=== PATIENT | female | born 1955 | race Caucasian/White ===

== ENCOUNTER 2017-02-21 02:41 | Emergency (ER) | payer MEDICARE, OTHER ==
[~2017-02-21] VITALS: Ht 149.8 cm; Wt 99.8 kg
[~2017-02-21 02:41] MED LIST: ADVAIR 100/501 EA INH; ADVAIR 250/501 EA INH; ADVAIR HFA1 AE1 PO; ALBUTEROL0.63 MG/3 INH; AMARYL1 M1 PO; AMARYL2 MG PO; ASPIRIN81 M1 PO; ATIVAN0.5 MG PO; ATORVASTATIN CA20 M1 PO; ATORVASTATIN CA80 M1 PO; B COMPLEX1 EACH PO; CALCIUM500 MG PO; CELEXA40 MG PO; CLARITIN10 MG PO; CLOPIDOGREL75 MG PO; COUMADIN5 M2 PO; COUMADIN6 M2 PO; Coumadin5 MG PO; DIOVAN HCT 12.51 TA1 PO; DOCUSATE SODIU100 M2 PO; DULCOLAX10 MG; DULCOLAX10 MG RC; DULCOLAX5 MG; DUONEB 3 MG/3 ML3 M1 INH; ENOXAPARIN120 MG/0.2 SC; FE-TABS325 MG PO; FERROUS SULFAT324 M1 PO; FLONASE 0.05% 121 EA NAS; FLONASE ALLERG9.9 ML NS; FLUTICASON0.05 MG/Ac NAS; GLUCOPHAGE1000 MG PO; GLUCOPHAGE500 M1 PO; GOOD SENSE ASP325 MG PO; GUAIFENESIN600 MG PO; HUMIRA40 MG/0.1 SC; HUMIRA40 MG/0.3 SQ; IMDUR SA30 MG PO; JANUVIA100 MG PO; K-DUR20 MEQ PO; KEPPRA1000 MG PO; KLOR-CON M2020 ME1 PO; LAMICTAL100 MG PO; LANTUS100 U/ML SC; LASIX40 MG PO; LEVEMIR FLEX100 U/ML SC; LEVEMIR10 ML SC; LEVOFLOXACIN500 MG PO; LEXAPRO10 MG; LEXAPRO20 MG PO; LINZESS145 MC1 PO; LIPITOR40 MG PO; LISINOPRIL10 M1 PO; LOPERAMIDE2 MG; LOPRESSOR25 MG PO; MAGNESIUM OXID400 MG PO; MEDROL DOSEPAK4 MG; METOPROLOL SR25 MG PO; METOPROLOL TAR100 M1 PO; METOPROLOL TART50 M1 PO; MILK OF MA400 MG/51 PO; MIRALAX POWDER255 G1 PO; MIRALAX17 GM/DOSE; MIRALAX17 GM/PACK PO; MUCINEX ER600 MG PO; MYLANTA 150 ML150 M1; NICODERM C14 MG/24 H TD; NITRO-DUR1 EACH TD; NOVOLOG FLEX100 U/ML SC; OYSTER SHELL CA1 T23 PO; Oscal,Oyster S500 MG PO; POTASSIUM CHLO20 ME3 PO; PREDNISONE10 M1 PO; PRILOSEC20 MG PO; PRILOSEC40 M1 PO; PROTONIX IV40 MG PO; SINGULAIR10 M1 PO; SPIRIVA -- 3018 MCG PO; SPIRIVA18 MCG PO; SYMBICORT1 AE1 INH; Senokot1 TAB PO; Synthroid,Levo50 MCG PO; Synthroid,Levo75 MCG PO; TOPROL XL25 MG PO; TRILIPIX45 M1 PO; TYLENOL EXTRA500 M1 PO; TYLENOL325 M2 PO; URECHOLINE25 MG PO; VISTARIL25 M1; VITAMIN B12500 MCG PO; VITAMIN D50000 I1 PO; VITAMIN D50000 I3 PO; ZANTAC 300300 MG PO; ZITHROMAX Z PA250 MG PO; ZITHROMAX500 MG PO; ZYPREXA ZYDIS5 MG PO; ZYPREXA10 MG PO; ZYPREXA20 M1 PO; Zaroxolyn,Diul2.5 MG PO; Zofran4 MG PO; [UNRECOGNIZED DRUG - OTHER]; [UNRECOGNIZED DRUG - OTHER] PO
[2017-02-21] MEDS ORDERED: CLOPIDOGREL75 MG PO (02:50)
[2017-02-21] MEDS ORDERED: FEOSOL325 MG PO (02:51)
[2017-02-21] MEDS ORDERED: HUMIRA40 MG/0.3 SQ (02:53)
[2017-02-21] MEDS ORDERED: HUMALOG MI100 UNIT/1 SQ (02:54)
[2017-02-21] MEDS ORDERED: ROPINIROLE HY0.25 MG PO (02:59)
[2017-02-21 03:27] LABS: BASO # 0.1 10*3/uL (0.0-0.1); BASO % 0.5 % (0.0-1.0); EOS # 1.9 10*3/uL (0.0-0.4); EOS % 19.8 % (1.0-4.0); HEMATOCRIT 41.7 % (37.0-47.0); HEMOGLOBIN 12.9 g/dl (12.0-16.0); LYMPH # 2.3 10*3/uL (1.3-4.4); LYMPH % 24.6 % (27.0-41.0); MEAN CELL VOLUME 93.5 fl (81.0-99.0); MEAN CORPUSCULAR HGB 28.9 pg (27.0-31.0); MEAN CORPUSCULAR HGB CONC 30.9 g/dl (33.0-37.0); MEAN PLATELET VOLUME 8.8 fl (9.6-12.3); MONO # 0.4 10*3/uL (0.1-1.0); MONO % 3.7 % (3.0-9.0); NEUT # 4.8 10*3/uL (2.3-7.9); PLATELET COUNT AUTOMATED 177 10*3/uL (130-400); RED BLOOD COUNT 4.46 10*6/uL (4.10-5.10); RED CELL DISTRI WIDTH 13.5 % (0-14.5); WHITE BLOOD COUNT 9.3 10*3/uL (4.8-10.8)
[2017-02-21 03:38] LABS: INTERNATIONAL NORM RATIO 0.9 (2.0-3.5); PROTHROMBIN TIME 9.5 SECONDS (9.0-12.4)
[2017-02-21 03:44] LABS: ALBUMIN 3.2 gm/dl (3.1-4.5); ALKALINE PHOSPHATASE 85 U/L (45-117); BILIRUBIN, TOTAL 0.2 mg/dl (0.2-1.0); BUN 13 mg/dl (7-24); CARBON DIOXIDE 35 mmol/L (21-32); CHLORIDE 95 mmol/L (98-107); EST GLOM FILT AFRICAN AMERICAN > 60 ml/min; GLUCOSE 249 mg/dL (65-99); POTASSIUM 4.7 mmol/L (3.5-5.1); SGOT/AST 29 IU/L (3-35); SGPT/ALT 35 U/L (12-78); SODIUM 140 mmol/L (136-145); TOTAL PROTEIN 6.8 gm/dL (6.4-8.2)
[2017-02-21 03:50] LABS: TROPONIN I 0.174 ng/ml (<0.045)
[2017-02-21 04:37] VITALS: BP 142/49
== END 2017-02-21 06:08 | disposition short-term general hospital (02) ==
LOC: ED 02:41
PROVIDERS: Emergency Medicine
DX: I21.4 Non-ST elevation (NSTEMI) myocardial infarction (principal); F17.200 Nicotine dependence, unspecified, uncomplicated; E03.9 Hypothyroidism, unspecified; I48.91 Unspecified atrial fibrillation; E11.65 Type 2 diabetes mellitus with hyperglycemia; E78.5 Hyperlipidemia, unspecified; Z79.4 Long term (current) use of insulin; Z88.2 Allergy status to sulfonamides; Z88.8 Allergy status to other drugs, medicaments and biological substances; Z79.899 Other long term (current) drug therapy

== ENCOUNTER 2018-04-11 15:04 | Inpatient (IN) | payer MEDICARE, OTHER ==
[~2018-04-11] VITALS: Ht 149.9 cm; Wt 89.2 kg
--- NOTE | ~2018-04-11 | PROC NOTE ---
[place], [place] PROCEDURE NOTE NAME: BON VAZQUEZ UNIT #: [id number] ROOM: [place] [address] DOCTOR: DAKOTA TUCKER MD BIRTHDATE: [birth year] DOS: 04/12/2018 PREOPERATIVE DIAGNOSES: Colonic distention, sepsis. POSTOPERATIVE DIAGNOSES: Colonic distention, sepsis. PROCEDURE: Flexible sigmoidoscopy. ENDOSCOPIST: Dakota Tucker MD GEAR SETTER: PGY-2. ANESTHESIA: IV sedation. INDICATIONS: This is a 63-year-old lady admitted yesterday from the Emergency Room with abdominal distention and sepsis. She had deterioration in her clinical condition and was transferred to the ICU, where I was consulted to evaluate and a decision was made to proceed with a flexible sigmoidoscopy for colonic decompression. PROCEDURE: Since this procedure as an emergency and the patient was intubated, the consent was signed by 2 physicians, myself included. The patient was placed in the left lateral position and a digital rectal exam was performed, which consisted of dark green stool, but no evidence of bleeding. At this point, a flexible sigmoidoscope was introduced into the anal canal and advanced sequentially until approximately 60 cm from the anal verge multiple rounds of irrigation were used in order to clearly visualize the mucosa. When the descending colon area was reached where there was considerable amount of distention noted on the CAT scan, the air was sucked away and there was a visual decompression of the abdominal girth during the process of the compression. The mucosa itself that was visualized was partial, but did not show evidence of ischemia or inflammation. At this point, the scope was withdrawn and the patient was placed back in supine position. At this point, the patient is also being transferred to a tertiary care center for further management. There were no complications from this procedure immediately. Dr. Dakota Tucker, the attending endoscopist, was present throughout the operating case. Dakota Tucker MD CM:PROCNOTE:PROCEDURE NOTE 54 DAKOTA TUCKER MD
--- NOTE | ~2018-04-11 | EKG ---
[place], [place] ELECTROCARDIOGRAM REPORT NAME: BON VAZQUEZ UNIT #: [id number] ROOM: [place] [address] DOCTOR: ISAIAS ARMSTRONG MD,CHANDNI BIRTHDATE: [birth year] DOS: 04/11/2018 Electrocardiogram that was done on 04/11/2018 at 3:22 p.m. The electrocardiogram showed multifocal atrial tachycardia with heart rate of 105 beats per minute. Poor R-wave progression was also noted in the chest leads. Nonspecific ST-T changes were noted. CHANDNI ESPARZA MD CM:EKGRPT:ELECTROCARDIOGRAM REPORT [id number] CHANDNI ARMSTRONG MD
[~2018-04-11 15:04] MED LIST changes: +FEOSOL325 MG PO; +HUMALOG MI100 UNIT/1 SQ; +ROPINIROLE HY0.25 MG PO
[2018-04-11 15:05] VITALS: BP 119/62
[2018-04-11] MEDS ORDERED: LIPITOR40 MG PO (15:09)
[2018-04-11] MEDS ORDERED: BISAC-EVAC10 MG R (15:11)
[2018-04-11] MEDS ORDERED: BREO ELLIPTA 11 EACH INH (15:13)
[2018-04-11] MEDS ORDERED: BUMETANIDE1 MG PO (15:14)
[2018-04-11] MEDS ORDERED: DEPAKOTE SPRIN125 MG PO (15:16)
[2018-04-11] MEDS ORDERED: FENOFIBRATE MI200 MG PO (15:16)
[2018-04-11] MEDS ORDERED: Ipratropium Brom3 ML INH (15:18)
[2018-04-11] MEDS ORDERED: HUMALOG KW200 UNIT/1 SC ×2 (15:19→15:24)
[2018-04-11 16:00] LABS: HEMOGLOBIN 8.8 g/dl (12.0-16.0); MEAN CELL VOLUME 93.9 fl (81.0-99.0); MEAN CORPUSCULAR HGB 28.5 pg (27.0-31.0); MEAN CORPUSCULAR HGB CONC 30.3 g/dl (33.0-37.0); MEAN PLATELET VOLUME 8.7 fl (9.6-12.3); PLATELET COUNT AUTOMATED 602 10*3/uL (130-400); RED BLOOD COUNT 3.09 10*6/uL (4.10-5.10); RED CELL DISTRI WIDTH 13.4 % (0-14.5); WHITE BLOOD COUNT 14.1 10*3/uL (4.8-10.8)
[2018-04-11 16:07] LABS: BILIRUBIN NEGATIVE (NEGATIVE); BLOOD NEGATIVE (NEGATIVE); CLARITY CLEAR (CLEAR); COLOR YELLOW (YELLOW); GLUCOSE NEGATIVE (NEGATIVE); KETONE NEGATIVE (NEGATIVE); LEUKO ESTERASE TRACE (NEGATIVE); NITRITE NEGATIVE (NEGATIVE); PH 5.5 (5.0-9.0); SPECIFIC GRAVITY 1.015 (1.005-1.030); UROBILINOGEN 0.2 E.U./dl (0.2-1.0)
[2018-04-11 16:09] LABS: ACT PARTIAL THROMBO TIME 24.7 SECONDS (20.8-31.5); INTERNATIONAL NORM RATIO 1.1 (2.0-3.5)
[2018-04-11 16:09] LABS: ALKALINE PHOSPHATASE 77 U/L (45-117); BUN 65 mg/dl (7-24); CHLORIDE 94 mmol/L (98-107); CREATININE 1.92 mg/dL (0.55-1.02); POTASSIUM 2.9 mmol/L (3.5-5.1); SGOT/AST 66 IU/L (3-35); SGPT/ALT 69 U/L (12-78); SODIUM 134 mmol/L (136-145); TOTAL PROTEIN 6.8 gm/dL (6.4-8.2)
[2018-04-11] MEDS ORDERED: LEVEMIR100 UNIT/1 SC (16:10)
[2018-04-11 16:13] LABS: TROPONIN I < 0.015 ng/ml (<0.045)
[2018-04-11] MEDS ORDERED: LOPERAMIDE HCL2 MG PO (16:14)
[2018-04-11 16:24] LABS: MUCOUS TRACE; RBC 0-2 rbc/hpf (0-2)
[2018-04-11 16:36] LABS: ATYPICAL LYMPHS 1 % (0-0); TOTAL CELLS COUNTED 100 #CELLS; TOXIC GRANULATION SLIGHT; VACUOLATION OF NEUTROPHILS SLIGHT
[2018-04-11 16:37] LABS: PLATELET SUFFICIENCY HIGH (NORMAL)
[2018-04-11 16:45] VITALS: BP 111/57
[2018-04-11 17:50] VITALS: BP 104/49
[2018-04-11] MEDS ORDERED: METOPROLOL TART50 M1 PO (18:36)
[2018-04-11] MEDS ORDERED: JANUVIA100 MG PO (18:39)
[2018-04-11] MEDS ORDERED: ZYPREXA10 M1 PO (18:41)
[2018-04-11] MEDS ORDERED: VISTARIL25 M2 PO (18:42)
[2018-04-11] MEDS ORDERED: CENTRUM SILVER1 EACH PO (18:49)
[2018-04-11 20:00] VITALS: BP 112/37
[2018-04-12] VITALS (22 sets, daily range): BP systolic 58–136; BP diastolic 25–74
[2018-04-12 04:02] LABS: HEMATOCRIT 27.4 % (37.0-47.0); HEMOGLOBIN 8.5 g/dl (12.0-16.0); MEAN CELL VOLUME 93.5 fl (81.0-99.0); MEAN PLATELET VOLUME 8.7 fl (9.6-12.3); PLATELET COUNT AUTOMATED 590 10*3/uL (130-400); RED BLOOD COUNT 2.93 10*6/uL (4.10-5.10); RED CELL DISTRI WIDTH 13.5 % (0-14.5); WHITE BLOOD COUNT 14.9 10*3/uL (4.8-10.8)
[2018-04-12 04:12] LABS: ACT PARTIAL THROMBO TIME 25.4 SECONDS (20.8-31.5); INTERNATIONAL NORM RATIO 1.1 (2.0-3.5)
[2018-04-12 04:19] LABS: ALBUMIN 1.8 gm/dl (3.1-4.5); BUN 62 mg/dl (7-24); CHLORIDE 101 mmol/L (98-107); CREATININE 1.46 mg/dL (0.55-1.02); CREATININE 1.48 mg/dL (0.55-1.02); PHOSPHOROUS 2.7 mg/dL (2.5-4.9); POTASSIUM 3.7 mmol/L (3.5-5.1); SODIUM 137 mmol/L (136-145); TOTAL PROTEIN 6.2 gm/dL (6.4-8.2)
[2018-04-12 04:20] LABS: FREE T4 1.49 ng/dl (0.76-1.46)
[2018-04-12 04:25] LABS: THYROID STIM HORMONE (HS) 0.233 uIU/ml (0.358-4.75)
[2018-04-12 04:30] LABS: TROPONIN I < 0.015 ng/ml (<0.045)
[2018-04-12 05:42] LABS: TOTAL CELLS COUNTED 100 #CELLS; TOXIC GRANULATION MODERATE
[2018-04-12 05:43] LABS: PLATELET SUFFICIENCY HIGH (NORMAL)
[2018-04-12 07:14] LABS: VITAMIN D, 25-HYDROXY 27.1 ng/mL (30-100)
[2018-04-12 07:27] LABS: ABG BASE EXCESS -3.7 mmol/L (-2.0-2.0); ABG HCO3 23.3 mmol/l (22-26); ABG O2 SATURATION 97.8 % (95-97); ARTERIAL BLOOD GAS PCO2 60.5 mmHg (35-45); ARTERIAL BLOOD GAS PH 7.219 (7.35-7.45)
[2018-04-12] MEDS ORDERED: METRONIDAZ500 MG/100 IV (07:31)
== END 2018-04-12 08:58 | disposition short-term general hospital (02) | DRG 871 ==
LOC: ED 15:04 → EDHOLD 17:54 → 4E 18:06 → ICCU 04-12 03:21
PROVIDERS: Emergency Medicine; Family Medicine; Internal Medicine
PROC: 5A1935Z Respiratory Ventilation, Less than 24 Consecutive Hours (ICD-10-PCS; principal; 2018-04-11)
PROC: 0BH17EZ Insertion of Endotracheal Airway into Trachea, Via Natural or Artificial Opening (ICD-10-PCS; principal; 2018-04-11)
PROC: 05H533Z Insertion of Infusion Device into Right Subclavian Vein, Percutaneous Approach (ICD-10-PCS; principal; 2018-04-11)
PROC: 0DJD8ZZ Inspection of Lower Intestinal Tract, Via Natural or Artificial Opening Endoscopic (ICD-10-PCS; 2018-04-12)
DX: A41.9 Sepsis, unspecified organism (principal); N17.0 Acute kidney failure with tubular necrosis; R65.21 Severe sepsis with septic shock; I50.33 Acute on chronic diastolic (congestive) heart failure; E43 Unspecified severe protein-calorie malnutrition; I95.9 Hypotension, unspecified; E87.2 Acidosis; E66.01 Morbid (severe) obesity due to excess calories; K50.819 Crohn's disease of both small and large intestine with unspecified complications; E87.1 Hypo-osmolality and hyponatremia; I50.32 Chronic diastolic (congestive) heart failure; I48.91 Unspecified atrial fibrillation; E11.65 Type 2 diabetes mellitus with hyperglycemia; G40.909 Epilepsy, unspecified, not intractable, without status epilepticus; E83.41 Hypermagnesemia; E78.5 Hyperlipidemia, unspecified; E03.9 Hypothyroidism, unspecified; E87.6 Hypokalemia; R14.0 Abdominal distension (gaseous); K52.9 Noninfective gastroenteritis and colitis, unspecified; I25.10 Atherosclerotic heart disease of native coronary artery without angina pectoris; J44.9 Chronic obstructive pulmonary disease, unspecified; K59.8 Other specified functional intestinal disorders; D64.9 Anemia, unspecified; D47.3 Essential (hemorrhagic) thrombocythemia; R74.0 Nonspecific elevation of levels of transaminase and lactic acid dehydrogenase [LDH]; K63.89 Other specified diseases of intestine; I25.2 Old myocardial infarction; Z88.2 Allergy status to sulfonamides; Z88.8 Allergy status to other drugs, medicaments and biological substances; Z79.899 Other long term (current) drug therapy; Z79.4 Long term (current) use of insulin; Z79.82 Long term (current) use of aspirin; Z98.61 Coronary angioplasty status; Z72.0 Tobacco use; Z82.49 Family history of ischemic heart disease and other diseases of the circulatory system; Z80.1 Family history of malignant neoplasm of trachea, bronchus and lung; Z68.39 Body mass index [BMI] 39.0-39.9, adult

== ENCOUNTER 2019-07-01 08:19 | Emergency (ER) | payer MEDICARE, OTHER ==
[~2019-07-01] VITALS: Ht 149.8 cm; Wt 90.7 kg
--- NOTE | ~2019-07-01 | EKG ---
[place], [place] ELECTROCARDIOGRAM REPORT NAME: BON VAZQUEZ UNIT #: [id number] ROOM: DOCTOR: EPIPHANY DRAFT REPORT BIRTHDATE: [birth year] [facility] Test Date: 2019-07-01 Test Time: 08:37:43 Pat Name: BON VAZQUEZ Department: Room: Gender: F Wire Temperer: Ebony Mitchell : 1955 Requested By: KATI NICHOLAS Order Number: [id number] Reading MD: Leslie Harrington MD Measurements Intervals [place] Rate: 98 P: 78 NM: 168 QRS: 81 QRSD: 88 T: 63 QT: 408 QTc: 522 Interpretive Statements Sinus rhythm Right atrial enlargement Borderline right axis deviation Borderline repol abnormality, diffuse leads Prolonged QT interval Baseline wander in lead(s) V5 No previous ECG available for comparison Electronically Signed On 07-01-2019 12:23:31 PDT by Leslie Harrington MD CM:EKGRPT:ELECTROCARDIOGRAM REPORT [id number] KATI CROW DRAFT REPORT KATI NICHOLAS MD
[~2019-07-01 08:19] MED LIST changes: +ACTOS15 M1 PO; +ACTOS30 M1 PO; +ASPIRIN ADULT L81 M2 PO; +BISAC-EVAC10 MG R; +BREO ELLIPTA 11 EACH INH; +BUMETANIDE1 MG PO; +CENTRUM SILVER1 EACH PO; +COZAAR25 M1 PO; +CYMBALTA30 MG PO; +DEPAKOTE SPRIN125 MG PO; +ELIQUIS5 M1 PO; +ERGOCALCIFEROL PO; +FENOFIBRATE MI200 MG PO; +FLORASTOR250 MG PO; +HUMALOG KW200 UNIT/1 SC; +HUMALOG100 UNIT/1 SQ; +IMODIUM A-D PO; +IRON325 M1 PO; +Ipratropium Brom3 ML INH; +LEVEMIR100 UNIT/1 SC; +LEVETIRACETAM1000 M1 PO; +LOPERAMIDE HCL2 MG PO; +MAGNESIUM CHLOR64 MG PO; +METRONIDAZ500 MG/100 IV; +OMEPRAZOLE MAGN20 MG PO; +QUESTRAN POWDE378 GM PO; +ROXICODONE5 MG PO; +SIMETHICONE125 M2 PO; +URE-NA15 GM PO; +VISTARIL25 M2 PO; +ZYPREXA10 M1 PO
[2019-07-01 08:46] LABS: BASO % 0.3 % (0.0-1.0); EOS % 0.3 % (1.0-4.0); HEMATOCRIT 40.9 % (37.0-47.0); HEMOGLOBIN 12.5 g/dl (12.0-16.0); LYMPH # 1.3 10*3/uL (1.3-4.4); LYMPH % 11.2 % (27.0-41.0); MEAN CELL VOLUME 85.4 fl (81.0-99.0); MEAN CORPUSCULAR HGB 26.1 pg (27.0-31.0); MEAN CORPUSCULAR HGB CONC 30.6 g/dl (33.0-37.0); MEAN PLATELET VOLUME 8.6 fl (9.6-12.3); MONO # 0.7 10*3/uL (0.1-1.0); MONO % 6.3 % (3.0-9.0); NEUT # 9.2 10*3/uL (2.3-7.9); NEUT % 81.1 % (47.0-73.0); PLATELET COUNT AUTOMATED 305 10*3/uL (130-400); RED BLOOD COUNT 4.79 10*6/uL (4.10-5.10); RED CELL DISTRI WIDTH 14.8 % (0-14.5); WHITE BLOOD COUNT 11.3 10*3/uL (4.8-10.8)
[2019-07-01 09:01] LABS: ACT PARTIAL THROMBO TIME 25.4 SECONDS (20.0-32.1)
[2019-07-01 09:03] LABS: ALBUMIN 3.5 gm/dl (3.1-4.5); ALKALINE PHOSPHATASE 64 U/L (45-117); BUN 19 mg/dl (7-24); CHLORIDE 96 mmol/L (98-107); CREATININE 0.96 mg/dL (0.55-1.02); LIPASE 66 U/L (73-393); POTASSIUM 3.7 mmol/L (3.5-5.1); SGOT/AST 10 IU/L (3-35); SGPT/ALT 17 U/L (12-78); SODIUM 136 mmol/L (136-145); TOTAL PROTEIN 7.3 gm/dL (6.4-8.2)
[2019-07-01 09:04] LABS: TROPONIN I < 0.015 ng/ml (<0.045)
[2019-07-01 09:06] LABS: BILIRUBIN NEGATIVE (NEGATIVE); BLOOD NEGATIVE (NEGATIVE); CLARITY CLEAR (CLEAR); COLOR YELLOW (YELLOW); GLUCOSE TRACE (NEGATIVE); KETONE NEGATIVE (NEGATIVE); NITRITE NEGATIVE (NEGATIVE); SPECIFIC GRAVITY 1.025 (1.005-1.030); UROBILINOGEN 0.2 E.U./dl (0.2-1.0)
[2019-07-01 09:19] LABS: BACTERIA 1+; EPITHELIAL CELLS 0-2; LEUKO ESTERASE NEGATIVE (NEGATIVE)
[2019-07-01 16:46] VITALS: BP 189/69
== END 2019-07-01 16:48 | disposition short-term general hospital (02) ==
LOC: ED 08:19
PROVIDERS: Emergency Medicine
DX: K56.609 Unspecified intestinal obstruction, unspecified as to partial versus complete obstruction (principal); R11.2 Nausea with vomiting, unspecified; J44.9 Chronic obstructive pulmonary disease, unspecified; I25.10 Atherosclerotic heart disease of native coronary artery without angina pectoris; I50.33 Acute on chronic diastolic (congestive) heart failure; G40.909 Epilepsy, unspecified, not intractable, without status epilepticus; E78.5 Hyperlipidemia, unspecified; E03.9 Hypothyroidism, unspecified; E11.9 Type 2 diabetes mellitus without complications; I25.2 Old myocardial infarction; M19.90 Unspecified osteoarthritis, unspecified site; E66.01 Morbid (severe) obesity due to excess calories; Z88.2 Allergy status to sulfonamides; Z88.8 Allergy status to other drugs, medicaments and biological substances; Z79.899 Other long term (current) drug therapy; Z79.82 Long term (current) use of aspirin; Z79.4 Long term (current) use of insulin; Z87.891 Personal history of nicotine dependence; Z90.49 Acquired absence of other specified parts of digestive tract

== ENCOUNTER 2019-09-13 14:36 | Inpatient (IN) | payer MEDICARE, OTHER ==
[2019-09-13] VITALS (7 sets, daily range): BP systolic 92–133; BP diastolic 31–76
[~2019-09-13] VITALS: Ht 149.9 cm; Wt 75.3 kg
[2019-09-13 15:12] LABS: BASO # 0.1 10*3/uL (0.0-0.1); BASO % 0.4 % (0.0-1.0); EOS # 0.1 10*3/uL (0.0-0.4); EOS % 0.5 % (1.0-4.0); HEMOGLOBIN 11.6 g/dl (12.0-16.0); LYMPH % 11.2 % (27.0-41.0); MEAN CELL VOLUME 92.5 fl (81.0-99.0); MEAN CORPUSCULAR HGB CONC 31.4 g/dl (33.0-37.0); MEAN PLATELET VOLUME 9.2 fl (9.6-12.3); MONO # 0.9 10*3/uL (0.1-1.0); MONO % 4.8 % (3.0-9.0); NEUT # 14.8 10*3/uL (2.3-7.9); NEUT % 81.7 % (47.0-73.0); PLATELET COUNT AUTOMATED 439 10*3/uL (130-400); RED CELL DISTRI WIDTH 16.6 % (0-14.5); WHITE BLOOD COUNT 18.1 10*3/uL (4.8-10.8)
[2019-09-13 15:23] LABS: INTERNATIONAL NORM RATIO 1.6 (2.0-3.5)
[2019-09-13 15:29] LABS: ALKALINE PHOSPHATASE 89 U/L (45-117); BUN 64 mg/dl (7-24); CHLORIDE 96 mmol/L (98-107); CREATININE 3.58 mg/dL (0.55-1.02); LIPASE 113 U/L (73-393); SGOT/AST 22 IU/L (3-35); SGPT/ALT 10 U/L (12-78); SODIUM 128 mmol/L (136-145); TOTAL PROTEIN 8.4 gm/dL (6.4-8.2)
[2019-09-13 15:31] LABS: POTASSIUM 7.2 mmol/L (3.5-5.1); TROPONIN I < 0.015 ng/ml (<0.045)
[2019-09-13 15:50] LABS: BILIRUBIN NEGATIVE (NEGATIVE); BLOOD 1+ (NEGATIVE); CLARITY CLOUDY (CLEAR); COLOR YELLOW (YELLOW); GLUCOSE NEGATIVE (NEGATIVE); KETONE TRACE (NEGATIVE); LEUKO ESTERASE 2+ (NEGATIVE); NITRITE NEGATIVE (NEGATIVE); SPECIFIC GRAVITY 1.025 (1.005-1.030); UROBILINOGEN 0.2 E.U./dl (0.2-1.0)
[2019-09-13 16:07] LABS: WBC TNTC wbc/hpf (0-5)
[2019-09-13 16:08] LABS: BACTERIA 1+
[2019-09-13] MEDS ORDERED: PACERONE200 MG PO (18:32)
[2019-09-13] MEDS ORDERED: VITAMIN C500 M8 PO (18:34)
[2019-09-13] MEDS ORDERED: CARDURA1 M1 PO (18:38)
[2019-09-13] MEDS ORDERED: CYMBALTA30 MG PO (18:39)
[2019-09-13] MEDS ORDERED: FLONASE ALLERG9.9 ML NAS (18:45)
[2019-09-13] MEDS ORDERED: HYDROXYZINE HCL25 MG PO (18:48)
[2019-09-13] MEDS ORDERED: LOMOTIL 2.5-0.1 EACH PO (18:59)
[2019-09-13] MEDS ORDERED: IMODIUM A-D2 M2 PO (19:00)
[2019-09-13] MEDS ORDERED: LORAZEPAM0.5 MG PO (19:01)
[2019-09-13] MEDS ORDERED: MAGOX 400400 MG PO (19:01)
[2019-09-13] MEDS ORDERED: Lopressor25 MG PO (19:02)
[2019-09-13] MEDS ORDERED: LANTUS SOL100 UNIT/1 SQ (19:03)
[2019-09-13] MEDS ORDERED: REQUIP0.25 M1 PO (19:04)
[2019-09-13] MEDS ORDERED: PROTONIX40 MG PO (19:05)
[2019-09-13] MEDS ORDERED: ZOFRAN4 MG PO (19:06)
[2019-09-13] MEDS ORDERED: OYSTER SHELL 51 EACH PO (19:07)
[2019-09-13] MEDS ORDERED: OLANZAPINE10 MG PO (19:07)
[2019-09-13] MEDS ORDERED: MILK OF MA400 MG/51 PO (19:09)
[2019-09-13] MEDS ORDERED: MYLANTA MAXIMU355 M1 PO (19:09)
--- NOTE | 2019-09-13 19:21 | NUR ---
DR TINAJERO NOTIFIED OF CONSULT ORDER, STATED HE WILL SEE PT IN THE AM.
--- NOTE | 2019-09-13 19:25 | NUR ---
DR GÓMEZ ANSWERING SERVICE MADE AWARE OF NEW CONSULT ORDER.
--- NOTE | 2019-09-13 19:38 | NUR ---
DR GÓMEZ NOTIFIED OF NEW CONSULT ORDER AND NEW ORDERS RECIEVED TO INCREASE ORAL VANCOMYCIN DOSE.
--- NOTE | 2019-09-13 19:53 | NUR ---
DR HOSKINS ANSWERING SERVICE MADE AWARE OF NEW CONSULT ORDER.
--- NOTE | 2019-09-13 20:08 | NUR ---
DR HOSKINS NOTIFIED OF NEW CONSULT AND REVIEWED LABS WITH HIM. REPEAT LABS ORDERED NOW.
[2019-09-13 20:14] LABS: CREATININE 2.99 mg/dL (0.55-1.02)
[2019-09-13 20:15] LABS: POTASSIUM 5.6 mmol/L (3.5-5.1)
[2019-09-13 20:23] LABS: ALBUMIN 2.6 gm/dl (3.1-4.5); CREATININE 2.98 mg/dL (0.55-1.02); POTASSIUM 5.6 mmol/L (3.5-5.1)
[2019-09-13 20:25] LABS: PHOSPHOROUS 4.3 mg/dL (2.5-4.9)
--- NOTE | 2019-09-13 20:31 | NUR ---
DR HOSKINS NOTIFIED OF REPEAT LAB VALUES.
[2019-09-13 23:31] LABS: CREATININE 2.78 mg/dL (0.55-1.02); POTASSIUM 5.4 mmol/L (3.5-5.1)
[2019-09-14] VITALS: BP 81/49
[2019-09-14 01:00] VITALS: BP 93/48
--- NOTE | 2019-09-14 01:30 | NUR ---
PT PUT LIGHT ON TO USE BED MAHMOOD. PT PARTLY INCONT BUT DID USE BED MAHMOOD. 200 ML OUTPUT OBTAINED BUT SOME INCONT OF URINE. OSTOMIES EMPTIED WELL. #1 WAS 10 ML BLOODY CLEAR DRAINAGE. #2 50ML CLEAR LIQUID BM. SOME LEAKING AT SITE. PT BED CHANGED AND NEW LINENS AND GOWN. PT COMFORTABLE AND BACK TO SLEEP. RESTING COMFORTABLY
[2019-09-14 02:00] VITALS: BP 126/60
--- NOTE | 2019-09-14 04:24 | NUR ---
Shift chart check completed.
[2019-09-14 05:16] LABS: CREATININE 2.35 mg/dL (0.55-1.02); PHOSPHOROUS 5.4 mg/dL (2.5-4.9); POTASSIUM 5.4 mmol/L (3.5-5.1)
[2019-09-14 05:23] LABS: THYROID STIM HORMONE (HS) 7.97 uIU/ml (0.358-4.75)
--- NOTE | 2019-09-14 05:40 | NUR ---
BON VAZQUEZ [id number] Please refer to the physician's history and physical for past medical history, comorbid conditions, and allergies. Diagnosis: ARF,HYPERKALEMIA Saud Score: 14,MODERATE RISK WOUND DESCRIPTIONS: Wound Number: 1 Location of the wound: Right side of abdomen Type of wound: surgical Thickness: Partial Size: 0.8cm x 2.3cm x 0.3cm Tunneling: none Undermining: none Sinus Tract: none Presence of Exudate: Serosanguineous Amount: Light Color: Yellow, red Odor: None Periwound Skin Appearance: Normal Wound edges: approximated Pain (associated with wound): none at time of assessment How does patient state this happened? pt states she had surgery up in [place] june or july Wound Number: 2 Location of the wound: above umbilicus Type of wound: surgical Thickness: Full Size: 14.3cm x 11.5cm x 0.8cm Tunneling: none Undermining: none Sinus Tract: none Presence of Exudate: Purulent Amount: Moderate Color: Yellow, red, brown Odor: Foul Periwound Skin Appearance: Normal Wound edges: approximated Pain (associated with wound): tender to touch How does patient state this happened? pt states she had surgery up in [place] june or july Surface the patient is resting on: Position Pro SKIN PREVENTION RECOMMENDATION: 1. Pressure redistribution support surface as appropriate 2. Elevate heels 3. Remove boots/TEDS every shift and reapply 4. Head of bed 30 degrees as tolerated 5. Assess nutrition and hydration 6. Manage moisture 7. Avoid the use of containment devices while in bed 8. Use absorptive products on surfaces limit layers of linens on bed 9. Turn and reposition every 1-2 hours in bed and every 1 hour in chair as tolerated 10. Weight shifts every 15 minutes while up in chair 11. Offloading with pillows or device to keep heels elevated off bed 12. Monitor skin at least every shift 13. Inspect under medical devices twice a day WOUND TREATMENT RECOMMENDATIONS: Dr. Vargas and infectious disease is already on consult await wound care recommendations for above umbilicus abdomen wound. Full thickness guideslines: cleanse right lower abdomen with nss and apply sureprep around the wound therahoney to wound bed and cover with dsd daily and prn for soiling.
[2019-09-14 06:27] LABS: BASO # 0.1 10*3/uL (0.0-0.1); BASO % 0.6 % (0.0-1.0); EOS # 0.4 10*3/uL (0.0-0.4); EOS % 3.1 % (1.0-4.0); HEMATOCRIT 34.4 % (37.0-47.0); HEMOGLOBIN 10.5 g/dl (12.0-16.0); LYMPH # 1.8 10*3/uL (1.3-4.4); LYMPH % 13.9 % (27.0-41.0); MEAN CORPUSCULAR HGB CONC 30.5 g/dl (33.0-37.0); MEAN PLATELET VOLUME 9.6 fl (9.6-12.3); MONO # 0.8 10*3/uL (0.1-1.0); MONO % 5.9 % (3.0-9.0); NEUT # 9.6 10*3/uL (2.3-7.9); NEUT % 75.2 % (47.0-73.0); PLATELET COUNT AUTOMATED 371 10*3/uL (130-400); RED BLOOD COUNT 3.62 10*6/uL (4.10-5.10); WHITE BLOOD COUNT 12.7 10*3/uL (4.8-10.8)
--- NOTE | 2019-09-14 06:52 | NUR ---
WOUND NURSE GRADY HERE TO SEE PATIENT - DRESSING TO ABDOMEN CHANGED ALONG WITH COLOSTOMY TO LEFT LOWER QUAD WHERE IT WAS LEAKING
[2019-09-14 08:00] VITALS: BP 129/69
--- NOTE | 2019-09-14 09:10 | NUR ---
Patient comes from [facility] manager intermediate care. patient is ok to return when medically stable for discharge.
--- NOTE | 2019-09-14 11:00 | NUR ---
Extension Work Director in to see patient. She is a LTC resident at [facility] and plans on returning there when discharged. She states she does ambulate with a walker but the staff at [facility] do not allow her to ambulate by herself. She does wear O2 @ 3L nc ATC and gets aerosol treatments. She states she is scheduled for a colostomy reversal October 15 at [facility]. tool planner following. Dr. Vargas and Dr. Osborne consulted.
[2019-09-14 12:00] VITALS: BP 88/36
[2019-09-14 14:57] LABS: CREATININE 1.73 mg/dL (0.55-1.02); POTASSIUM 5.2 mmol/L (3.5-5.1)
--- NOTE | 2019-09-14 15:20 | NUR ---
DR RODAS (RESIDENT WITH DR LINDA) CALLED WITH LABS & ID RECOMENDATIONS
[2019-09-14 16:01] VITALS: BP 96/50
--- NOTE | 2019-09-14 17:30 | NUR ---
AWAITING [facility] TO TRANSFER TO [facility]. FAMILY AWARE
--- NOTE | 2019-09-14 17:54 | NUR ---
LEFT VIA [facility] TO [facility] ER
--- NOTE | 2019-09-14 17:59 | NUR ---
REPORT TO [facility] ER
--- NOTE | 2019-09-14 18:43 | NUR ---
PATIENT REFUSED TO ALLOW DC PHOTOS SHE DIDN'T WANT THE DRESSING TAKEN OFF AGAIN IT CAUSES PAIN
== END 2019-09-14 17:54 | disposition short-term general hospital (02) | DRG 871 ==
LOC: ED 14:36 → EDHOLD 15:57 → ICCU 15:57 → EDHOLD 16:31 → ICCU 16:44
PROVIDERS: Emergency Medicine; Family Medicine; Internal Medicine; Internal Medicine Nephrology; ADMIT Family Medicine
DX: A41.9 Sepsis, unspecified organism (principal); N17.0 Acute kidney failure with tubular necrosis; I50.32 Chronic diastolic (congestive) heart failure; E87.1 Hypo-osmolality and hyponatremia; N30.00 Acute cystitis without hematuria; K50.818 Crohn's disease of both small and large intestine with other complication; I25.810 Atherosclerosis of coronary artery bypass graft(s) without angina pectoris; E87.5 Hyperkalemia; E83.42 Hypomagnesemia; R79.89 Other specified abnormal findings of blood chemistry; E87.8 Other disorders of electrolyte and fluid balance, not elsewhere classified; E03.9 Hypothyroidism, unspecified; E66.01 Morbid (severe) obesity due to excess calories; E78.5 Hyperlipidemia, unspecified; B99.8 Other infectious disease; G40.909 Epilepsy, unspecified, not intractable, without status epilepticus; D64.9 Anemia, unspecified; E11.65 Type 2 diabetes mellitus with hyperglycemia; J44.9 Chronic obstructive pulmonary disease, unspecified; Z88.8 Allergy status to other drugs, medicaments and biological substances; Z88.2 Allergy status to sulfonamides; Z87.891 Personal history of nicotine dependence; Z82.49 Family history of ischemic heart disease and other diseases of the circulatory system; Z80.1 Family history of malignant neoplasm of trachea, bronchus and lung; Z79.82 Long term (current) use of aspirin; Z79.899 Other long term (current) drug therapy; Z79.4 Long term (current) use of insulin; Z68.34 Body mass index [BMI] 34.0-34.9, adult

== ENCOUNTER 2019-09-24 17:35 | Inpatient (IN) | payer MEDICARE, OTHER ==
[~2019-09-24] VITALS: Ht 149.9 cm; Wt 73.5 kg
[2019-09-24 17:35] VITALS: BP 126/64
[~2019-09-24 17:35] MED LIST changes: +CARDURA1 M1 PO; +FLONASE ALLERG9.9 ML NAS; +HYDROXYZINE HCL25 MG PO; +IMODIUM A-D2 M2 PO; +LANTUS SOL100 UNIT/1 SQ; +LOMOTIL 2.5-0.1 EACH PO; +LORAZEPAM0.5 MG PO; +Lopressor25 MG PO; +MAGOX 400400 MG PO; +MYLANTA MAXIMU355 M1 PO; +OLANZAPINE10 MG PO; +OYSTER SHELL 51 EACH PO; +PACERONE200 MG PO; +PROTONIX40 MG PO; +REQUIP0.25 M1 PO; +VITAMIN C500 M8 PO; +ZOFRAN4 MG PO
[2019-09-24 17:56] LABS: BASO % 0.4 % (0.0-1.0); EOS # 0.4 10*3/uL (0.0-0.4); EOS % 3.5 % (1.0-4.0); HEMATOCRIT 29.7 % (37.0-47.0); HEMOGLOBIN 9.2 g/dl (12.0-16.0); LYMPH # 2.7 10*3/uL (1.3-4.4); LYMPH % 26.9 % (27.0-41.0); MEAN CELL VOLUME 96.4 fl (81.0-99.0); MEAN CORPUSCULAR HGB 29.9 pg (27.0-31.0); MEAN PLATELET VOLUME 8.3 fl (9.6-12.3); MONO # 0.7 10*3/uL (0.1-1.0); NEUT # 6.1 10*3/uL (2.3-7.9); NEUT % 61.5 % (47.0-73.0); PLATELET COUNT AUTOMATED 453 10*3/uL (130-400); RED BLOOD COUNT 3.08 10*6/uL (4.10-5.10); RED CELL DISTRI WIDTH 16.3 % (0-14.5); WHITE BLOOD COUNT 9.9 10*3/uL (4.8-10.8)
[2019-09-24 18:07] LABS: ACT PARTIAL THROMBO TIME 29.1 SECONDS (20.0-32.1); INTERNATIONAL NORM RATIO 1.2 (2.0-3.5)
[2019-09-24 18:12] LABS: ALBUMIN 2.4 gm/dl (3.1-4.5); ALKALINE PHOSPHATASE 69 U/L (45-117); BUN 57 mg/dl (7-24); CHLORIDE 89 mmol/L (98-107); CREATININE 2.96 mg/dL (0.55-1.02); LIPASE 38 U/L (73-393); SGOT/AST 19 IU/L (3-35); SGPT/ALT 13 U/L (12-78); SODIUM 124 mmol/L (136-145); TOTAL PROTEIN 6.8 gm/dL (6.4-8.2)
[2019-09-24 18:16] LABS: POTASSIUM 6.5 mmol/L (3.5-5.1); TROPONIN I < 0.015 ng/ml (<0.045)
--- NOTE | 2019-09-24 18:16 | NUR ---
POTASSIUM 6.[address] HEBERT AWARE
[2019-09-24 20:00] VITALS: BP 72/42
[2019-09-24 21:00] VITALS: BP 72/42
--- NOTE | 2019-09-24 21:00 | NUR ---
A 64, admitted to 4E, under the services of PATRICIA Nath DO with a diagnosis of HYPERKALEMIA, HYPOMAGNASEMIA. Chief complaint is ABNORMAL LABS. Patient arrived via ambulance from ER. Monitor applied. Initial assessment completed. Vital signs taken and recorded. PATRICIA NATH DO notified of admission to the unit. Orders received. See assessment for past medical history, medications and allergies. Patient and/or family oriented to unit. visitation policy reviewed. Clothing/patient valuable form completed. ANTONIO PRADO
--- NOTE | 2019-09-24 21:15 | NUR ---
PATIENT B/P 72/42. DR. MCKEON NOTIFIED. PATIENT COLOSTOMY BAG ALSO LEAKING. NEW BAG APPLIED AT THIS TIME AND NEW IV STARTED IN RIGHT WRIST D/T OLD SITE INFILTRATED. 22G PERIPHERAL INSERTED INTO RIGHT WRIST WITHOUT DIFFICULTY. PATIENT TOLERATED WELL. PATIENT REFUSED TO HAVE OLD COLOSTOMY WOUND SITES TO BE PHOTOGRAPHED AND MEASURED. STATED THEY ARE BEING PACKED AND DOESN/T WANT THE DRESSINGS TAKEN OFF.
--- NOTE | 2019-09-24 21:39 | NUR ---
PATIENT REFUSED WOUND PHOTOS
--- NOTE | 2019-09-24 23:14 | NUR ---
DR. MCKEON NOTIFIED OF CRITICAL LACTIC ACID OF 3.5.
[2019-09-25] VITALS (7 sets, daily range): BP systolic 81–122; BP diastolic 36–96
[2019-09-25 00:48] LABS: CREATININE 3.04 mg/dL (0.55-1.02); POTASSIUM 5.6 mmol/L (3.5-5.1)
--- NOTE | 2019-09-25 06:15 | NUR ---
TAYLORDENTONBON P [id number] Please refer to the physician's history and physical for past medical history, comorbid conditions, and allergies. Diagnosis: HYPERKALEMIA,HYPOMAGNESEMIA Saud Score: 18,AT RISK WOUND DESCRIPTIONS: Wound Number: 1 Location of the wound: Right side of abdomen Type of wound: surgical Thickness: Partial Size: 0.4cm x 1.0cm x <0.1cm Tunneling: none Undermining: none Sinus Tract: none Presence of Exudate: none Amount: none Color: brown, red Odor: None Periwound Skin Appearance: Scar Wound edges: approximated Pain (associated with wound): none at time of assessment How does patient state this happened? pt states she had surgery up in [place] june or july Wound Number: 2 Location of the wound: above umbilicus Type of wound: surgical Thickness: Full Size: 12.7cm x 10.5cm x 0.8cm Tunneling: none Undermining: none Sinus Tract: none Presence of Exudate: Purulent Amount: Moderate Color: Yellow, red, brown Odor: Foul Periwound Skin Appearance: scar Wound edges: approximated Pain (associated with wound): tender to touch How does patient state this happened? pt states she had surgery up in [place] june or july Patient states she has a follow up appointment on 10/15/19 at [facility]. Surface the patient is resting on: Isoflex SKIN PREVENTION RECOMMENDATION: 1. Pressure redistribution support surface as appropriate 2. Elevate heels 3. Remove boots/TEDS every shift and reapply 4. Head of bed 30 degrees as tolerated 5. Assess nutrition and hydration 6. Manage moisture 7. Avoid the use of containment devices while in bed 8. Use absorptive products on surfaces limit layers of linens on bed 9. Turn and reposition every 1-2 hours in bed and every 1 hour in chair as tolerated 10. Weight shifts every 15 minutes while up in chair 11. Offloading with pillows or device to keep heels elevated off bed 12. Monitor skin at least every shift 13. Inspect under medical devices twice a day WOUND TREATMENT RECOMMENDATIONS: Full thickness guidelines: Cleanse above umbilicus with nss and apply hydrogel to wound bed and cover with wet to dry dressing bid. patient states this is what [facility] wants until surgery on 10/15/19. Full thickness guideslines: cleanse right lower abdomen with nss and apply sureprep around the wound therahoney to wound bed and cover with dsd daily and prn for soiling. Heel raiser pro boots while in bed to bilateral feet.
[2019-09-25 06:55] LABS: BASO % 0.5 % (0.0-1.0); EOS # 0.4 10*3/uL (0.0-0.4); EOS % 4.7 % (1.0-4.0); HEMATOCRIT 29.9 % (37.0-47.0); HEMOGLOBIN 9.3 g/dl (12.0-16.0); LYMPH # 2.2 10*3/uL (1.3-4.4); LYMPH % 29.7 % (27.0-41.0); MEAN CELL VOLUME 95.2 fl (81.0-99.0); MEAN CORPUSCULAR HGB 29.6 pg (27.0-31.0); MEAN CORPUSCULAR HGB CONC 31.1 g/dl (33.0-37.0); MEAN PLATELET VOLUME 8.2 fl (9.6-12.3); MONO # 0.5 10*3/uL (0.1-1.0); MONO % 7.2 % (3.0-9.0); NEUT # 4.2 10*3/uL (2.3-7.9); NEUT % 57.4 % (47.0-73.0); PLATELET COUNT AUTOMATED 457 10*3/uL (130-400); RED BLOOD COUNT 3.14 10*6/uL (4.10-5.10); RED CELL DISTRI WIDTH 16.3 % (0-14.5); WHITE BLOOD COUNT 7.4 10*3/uL (4.8-10.8)
[2019-09-25 07:11] LABS: CREATININE 2.34 mg/dL (0.55-1.02); PHOSPHOROUS 5.4 mg/dL (2.5-4.9); POTASSIUM 5.3 mmol/L (3.5-5.1)
--- NOTE | 2019-09-25 07:17 | NUR ---
DR. HOSKINS'S ANSWERING SERVICE NOTIFIED OF CONSULT FOR PATIENT FOR HYPERKALEMIA AND HYPOMAGNASEMIA.
--- NOTE | 2019-09-25 07:23 | NUR ---
SPOKE WITH DR. HOSKINS ABOUT PATIENT AND INFORMED HIM OF HER STATUS.
--- NOTE | 2019-09-25 08:20 | NUR ---
PT RESTING IN BED, PULLED UP IN BED. RESP-EASY AND REGULAR. OXYGEN IN USE. IVF INFUSING WITH NO PROBLEM. NO C/O AT THIS TIME. CALL LIGHT IN REACH. SEE SHIFT ASSESSMENT.
--- NOTE | 2019-09-25 09:00 | NUR ---
case management visits with patient, she is a [facility] resident of [facility] and will return when medically stable. she ambulates with a walker and has oxygen at 3l/min, she is being treated at this time for hyperkalemia, case management /category planner will follow
--- NOTE | 2019-09-25 10:04 | NUR ---
Dr. Rowell notified of wound care recommendations.
--- NOTE | 2019-09-25 11:28 | NUR ---
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 Patient can return to [facility] when medically stable for discharge.
--- NOTE | 2019-09-25 12:00 | NUR ---
TOLERATED ROUTINE MED WITH NO PROBLEM. BSG-174, SEE EMAR. CALL LIGHT IN REACH.
--- NOTE | 2019-09-25 13:55 | NUR ---
Occupational Therapy evaluation completed on 4 with full eval to follow. PRecautions include colostomy, 3 lpm o2 use,CGA transfers, IV UE, fall risk; bed alarm, moderate complexity 99638. Recommend OT per pOC for safety in xfers, ww use,LB self care, standing tolerance and safety in standing and return to LTC at [facility] upon d/c. Thank you. Amanuel Benoit OTR/l
--- NOTE | 2019-09-25 14:32 | NUR ---
Patient seen for PT evaluation on 4. Please see full PT evaluation. Continue PT for strengthening, gait, balance, safety. Patient to return to [facility]. Moderate complexity PT evaluation. Pt resting in chair at bedside with phone, call button and tray table in reach. Thank you for this referral, Johnna Lucia, PT.
--- NOTE | 2019-09-25 14:40 | NUR ---
CALLED DR. RODAS MADE HER AWARE PT BP 90/42 MANUALLY. NO NEW ORDERS.
--- NOTE | 2019-09-25 15:00 | NUR ---
PT AMBULATORY TO BATHROOM AND BACK TO CHAIR. RESP-EASY AND REGULAR. DENIES DIZZINESS, NO SOB OR CHEST PAIN. PT ASYMPTOMATIC. DR. RODAS IN ROOM WITH PT. IVF INFUSING WITH NO PROBLEM. CALL LIGHT IN REACH. OXYGEN IN USE.
--- NOTE | 2019-09-25 16:00 | NUR ---
PT SITTING UP IN CHAIR. BSG-178, SEE EMAR. IVF INFUSING WITH NO PROBLEM. NO C/O AT THIS TIME. CALL LIGHT IN REACH. SEE SHIFT ASSESSMENT.
--- NOTE | 2019-09-25 22:10 | NUR ---
COLOSTOMY BAG LEAKING. SITE CLEANED AND NEW ONE APPLIED. PATINET TOLERATED WELL.
[2019-09-26] VITALS: BP 97/73
--- NOTE | 2019-09-26 04:15 | NUR ---
24 HR chart check completed.
--- NOTE | 2019-09-26 04:28 | NUR ---
Upon discharge recommend patient to follow up for wound care in outpatient setting continue current wound care orders at discharging facility.
[2019-09-26 06:20] LABS: BASO % 0.6 % (0.0-1.0); EOS # 0.6 10*3/uL (0.0-0.4); EOS % 8.8 % (1.0-4.0); HEMATOCRIT 30.2 % (37.0-47.0); HEMOGLOBIN 9.5 g/dl (12.0-16.0); LYMPH # 2.1 10*3/uL (1.3-4.4); LYMPH % 31.7 % (27.0-41.0); MEAN CORPUSCULAR HGB 29.9 pg (27.0-31.0); MEAN CORPUSCULAR HGB CONC 31.5 g/dl (33.0-37.0); MEAN PLATELET VOLUME 8.3 fl (9.6-12.3); MONO # 0.4 10*3/uL (0.1-1.0); MONO % 6.8 % (3.0-9.0); NEUT # 3.3 10*3/uL (2.3-7.9); NEUT % 51.3 % (47.0-73.0); PLATELET COUNT AUTOMATED 460 10*3/uL (130-400); RED BLOOD COUNT 3.18 10*6/uL (4.10-5.10); RED CELL DISTRI WIDTH 15.6 % (0-14.5); WHITE BLOOD COUNT 6.5 10*3/uL (4.8-10.8)
[2019-09-26 06:35] LABS: CHLORIDE 99 mmol/L (98-107); POTASSIUM 4.8 mmol/L (3.5-5.1); SODIUM 134 mmol/L (136-145)
[2019-09-26 06:41] LABS: CREATININE 1.08 mg/dL (0.55-1.02); PHOSPHOROUS 3.6 mg/dL (2.5-4.9)
[2019-09-26 06:42] LABS: BUN 34 mg/dl (7-24)
[2019-09-26 08:00] VITALS: BP 122/60
--- NOTE | 2019-09-26 09:00 | NUR ---
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
--- NOTE | 2019-09-26 09:15 | NUR ---
PHYSICAL THERAPY Patient seen this am 1:1 for therapy visit and was supine in bed upon therapist arrival. Patient identified by name / and presented with continuous O2-3L via NC. Patient SpO2 96% prior to treatment as patient transfers supine to sit EOB with MIN A. Patient completed sit to stand CGA and ambulated with use of wh walker, CGA, 75'x 1, demonstrating slow ronald, even stride and increased fatigue > 50 feet. Patient needed v/c to improve safe 180 degree turn around and returne to supine in bed. Patient remained in bed with call light, tray table, telephone and bed alarm. Will continue per POC as tolerated, total treatment time 16 minutes. Dharmesh Grace, STEEL CHECKER
--- NOTE | 2019-09-26 09:23 | NUR ---
OT NOTE Pt was seen this A.M. 1:1 for 19 minute OT session. Upon arrival pt was supine in bed. Pt identified by name and and had no complaints at this time. Pt presented to therapy with continuous 3L-O2 via NC which she remained on throughout the entire session. Pt transferred supine to sit EOB with SBA. While sitting EOB pt donned B socks with SBA. Sit to stand completed from bed level with CGA and use of w/w, followed by functional mobility to the bathroom with CGA for safety. There she transferred on/off standard commode with SBA and use of grab bar for UE support. She then stood sink side while washing her hands with CGA for safety. Functional mobility was then completed back to the EOB. While sitting EOB pt completed 5 time sit to stand without the use of her UE's in 19 seconds. Pt then transferred back into bed sit to supine with Marita for assist with BLE's. There she was left with call light in hand, tray table in place, and bed alarm activated for safety. Continue with rec D/C plan to home with home health. ANDIE Chambers/[place]
[2019-09-26 12:00] VITALS: BP 103/46
--- NOTE | 2019-09-26 13:41 | NUR ---
200 drained from colostomy bag
--- NOTE | 2019-09-26 14:08 | NUR ---
Nutritional Support Services Note: Discussing with pt foods high in K+. Diet sheet given. Reviewed all foods. All questions were answered. Encouraged compliance. Encouraged follow up if needed. Carolann Moss Rdn Ld
--- NOTE | 2019-09-26 15:05 | NUR ---
Patient is discharged to return to [facility]; transportation is scheduled for 4:30 with [place]. NH, nursing/mail forwarding system markup clerk and BHAVIN Sharpe all notified.
--- NOTE | 2019-09-26 15:23 | NUR ---
OCCUPATIONAL THERAPY CO-SIGN I approve of the Occupational Therapy notes written above. DAVID ENAMORADO OTR/[place]
[2019-09-26 16:00] VITALS: BP 95/57
--- NOTE | 2019-09-26 17:00 | NUR ---
Discharge instructions reviewed with patient/family. Patient receptive and verbalizes understanding. Follow-up care arranged. Written instructions given to patient/family. MARGARET GRACE
--- NOTE | 2019-09-27 08:30 | NUR ---
PHYSICAL THERAPY CO-SIGN I approve of the Physical Therapy notes written above. Opal Balbuena PT
== END 2019-09-26 17:37 | DRG 682 ==
LOC: ED 17:35 → 4E 18:38 → EDHOLD 18:38 → 4E 20:27
PROVIDERS: Emergency Medicine; Internal Medicine; ADMIT Internal Medicine
DX: N17.0 Acute kidney failure with tubular necrosis (principal); E43 Unspecified severe protein-calorie malnutrition; E87.1 Hypo-osmolality and hyponatremia; E87.2 Acidosis; I25.810 Atherosclerosis of coronary artery bypass graft(s) without angina pectoris; K50.80 Crohn's disease of both small and large intestine without complications; I50.32 Chronic diastolic (congestive) heart failure; E87.5 Hyperkalemia; E83.42 Hypomagnesemia; E78.5 Hyperlipidemia, unspecified; E66.01 Morbid (severe) obesity due to excess calories; G40.909 Epilepsy, unspecified, not intractable, without status epilepticus; E11.22 Type 2 diabetes mellitus with diabetic chronic kidney disease; N18.3 Chronic kidney disease, stage 3 (moderate); E87.8 Other disorders of electrolyte and fluid balance, not elsewhere classified; J44.9 Chronic obstructive pulmonary disease, unspecified; E11.65 Type 2 diabetes mellitus with hyperglycemia; R79.82 Elevated C-reactive protein (CRP); E03.9 Hypothyroidism, unspecified; Z79.4 Long term (current) use of insulin; Z93.3 Colostomy status; Z95.1 Presence of aortocoronary bypass graft; Z87.891 Personal history of nicotine dependence; Z82.49 Family history of ischemic heart disease and other diseases of the circulatory system; Z80.1 Family history of malignant neoplasm of trachea, bronchus and lung; Z88.2 Allergy status to sulfonamides; Z88.8 Allergy status to other drugs, medicaments and biological substances; Z79.899 Other long term (current) drug therapy; Z79.82 Long term (current) use of aspirin; Z93.2 Ileostomy status; Z68.29 Body mass index [BMI] 29.0-29.9, adult

== ENCOUNTER 2019-10-01 21:41 | Inpatient (IN) | payer MEDICARE, OTHER ==
[2019-10-01] VITALS (7 sets, daily range): BP systolic 82–88; BP diastolic 35–42
[~2019-10-01] VITALS: Ht 149.8 cm; Wt 75.1 kg
--- NOTE | 2019-10-01 21:53 | NUR ---
DR HUDSON INFORMED OF PATIENTS BP 82/40 MANUAL. PATIENT AOX4, DENIES DIZZINESS AND LIGHTHEADEDNESS AT THIS TIME. RN WILL CONT TO MONITOR
[2019-10-01 22:22] LABS: BASO # 0.1 10*3/uL (0.0-0.1); BASO % 0.5 % (0.0-1.0); EOS # 0.4 10*3/uL (0.0-0.4); EOS % 4.3 % (1.0-4.0); HEMATOCRIT 24.9 % (37.0-47.0); HEMOGLOBIN 7.8 g/dl (12.0-16.0); LYMPH # 2.4 10*3/uL (1.3-4.4); LYMPH % 25.9 % (27.0-41.0); MEAN CELL VOLUME 95.8 fl (81.0-99.0); MEAN CORPUSCULAR HGB CONC 31.3 g/dl (33.0-37.0); MEAN PLATELET VOLUME 8.2 fl (9.6-12.3); MONO # 0.6 10*3/uL (0.1-1.0); MONO % 5.9 % (3.0-9.0); NEUT # 5.8 10*3/uL (2.3-7.9); NEUT % 62.6 % (47.0-73.0); PLATELET COUNT AUTOMATED 403 10*3/uL (130-400); RED CELL DISTRI WIDTH 15.1 % (0-14.5); WHITE BLOOD COUNT 9.3 10*3/uL (4.8-10.8)
[2019-10-01 22:37] LABS: ALBUMIN 2.2 gm/dl (3.1-4.5); CREATININE 1.41 mg/dL (0.55-1.02); POTASSIUM 5.4 mmol/L (3.5-5.1); TOTAL PROTEIN 5.9 gm/dL (6.4-8.2)
--- NOTE | 2019-10-01 22:47 | NUR ---
CRITICAL LAB MAG 0.8 DR HUDSON NOTIFIED OF THIS.
--- NOTE | 2019-10-01 22:52 | NUR ---
DR HUDSON NOTIFIED OF BP 88/[address] HUDSON STATES SHE WILL ORDER FLUIDS AND MAG AT THIS TIME.
[2019-10-02] VITALS (8 sets, daily range): BP systolic 96–143; BP diastolic 36–71
--- NOTE | 2019-10-02 00:52 | NUR ---
NURSE TO NURSE REPORT GIVEN TO RN AT [facility].
--- NOTE | 2019-10-02 02:30 | NUR ---
[facility] 64[facility] under the services of RANJIT Crump DO with a diagnosis of HYPERGLYCEMIA,HYPONATREMIA,HYPOTENSION. Chief complaint is ABNORMAL LABS. Patient arrived via bed from ER. Monitor applied. Initial assessment completed. Vital signs taken and recorded. RANJIT CRUMP DO notified of admission to the unit. Orders received. See assessment for past medical history, medications and allergies. Patient and/or family oriented to unit. [facility] visitation policy reviewed. Clothing/patient valuable form completed. CINTIA MACIAS
[2019-10-02] MEDS ORDERED: CHOLESTYRAMI239.4 GM PO (03:59)
--- NOTE | 2019-10-02 04:01 | NUR ---
BON VAZQUEZ [id number] Please refer to the physician's history and physical for past medical history, comorbid conditions, and allergies. Diagnosis: HYPERGLYCEMIA, HYPONATREMIA, HYPOTENSTION, Saud Score: , WOUND DESCRIPTIONS: Wound Number: 1 Location of the wound: Right side of abdomen Type of wound: surgical Thickness: Partial Size: 0.3cm x 0.3cm x <0.1cm Tunneling: none Undermining: none Sinus Tract: none Presence of Exudate: none Amount: none Color: brown, red Odor: None Periwound Skin Appearance: Scar Wound edges: approximated Pain (associated with wound): none at time of assessment How does patient state this happened? pt states she had surgery up in [place] june or july Wound Number: 2 Location of the wound: above umbilicus Type of wound: surgical Thickness: Full Size: 13.6cm x 10.3cm x 0.5cm Tunneling: none Undermining: none Sinus Tract: none Presence of Exudate: Purulent Amount: Moderate Color: Yellow, red, brown Odor: Foul Periwound Skin Appearance: scar Wound edges: approximated Pain (associated with wound): tender to touch How does patient state this happened? pt states she had surgery up in [place] june or july Surface the patient is resting on: ER stretcher SKIN PREVENTION RECOMMENDATION: 1. Pressure redistribution support surface as appropriate 2. Elevate heels 3. Remove boots/TEDS every shift and reapply 4. Head of bed 30 degrees as tolerated 5. Assess nutrition and hydration 6. Manage moisture 7. Avoid the use of containment devices while in bed 8. Use absorptive products on surfaces limit layers of linens on bed 9. Turn and reposition every 1-2 hours in bed and every 1 hour in chair as tolerated 10. Weight shifts every 15 minutes while up in chair 11. Offloading with pillows or device to keep heels elevated off bed 12. Monitor skin at least every shift 13. Inspect under medical devices twice a day WOUND TREATMENT RECOMMENDATIONS: Full thickness guidelines: Cleanse above umbilicus with nss and apply hydrogel to wound bed and cover with wet to dry dressing bid. patient states this is what [facility] wants until surgery on 10/15/19. Full thickness guideslines: cleanse right lower abdomen with nss and apply sureprep around the wound therahoney to wound bed and cover with dsd daily and prn for soiling. Heel raiser pro boots while in bed to bilateral feet.
[2019-10-02] MEDS ORDERED: VITAMIN D50000 UNIT PO (04:07)
[2019-10-02] MEDS ORDERED: SODIUM CHLORIDE1 GM PO (04:09)
[2019-10-02] MEDS ORDERED: METAMUCIL PACK3.4 GM PO (04:11)
[2019-10-02] MEDS ORDERED: GLUCOPHAGE500 M1 PO (04:12)
[2019-10-02] MEDS ORDERED: OYSTERCAL-D 501 EACH PO (04:13)
--- NOTE | 2019-10-02 05:40 | NUR ---
DR GUTIREREZ NOTIFIED OF WOUND CARE RECOMMENDATIONS.
[2019-10-02 06:24] LABS: BASO # 0.1 10*3/uL (0.0-0.1); BASO % 0.7 % (0.0-1.0); EOS # 0.4 10*3/uL (0.0-0.4); EOS % 4.9 % (1.0-4.0); HEMATOCRIT 27.7 % (37.0-47.0); HEMOGLOBIN 8.7 g/dl (12.0-16.0); LYMPH # 2.1 10*3/uL (1.3-4.4); MEAN CELL VOLUME 96.2 fl (81.0-99.0); MEAN CORPUSCULAR HGB 30.2 pg (27.0-31.0); MEAN CORPUSCULAR HGB CONC 31.4 g/dl (33.0-37.0); MEAN PLATELET VOLUME 9.1 fl (9.6-12.3); MONO # 0.5 10*3/uL (0.1-1.0); MONO % 5.1 % (3.0-9.0); NEUT # 5.6 10*3/uL (2.3-7.9); NEUT % 64.3 % (47.0-73.0); PLATELET COUNT AUTOMATED 487 10*3/uL (130-400); RED BLOOD COUNT 2.88 10*6/uL (4.10-5.10); RED CELL DISTRI WIDTH 15.1 % (0-14.5); WHITE BLOOD COUNT 8.8 10*3/uL (4.8-10.8)
[2019-10-02 06:39] LABS: CHLORIDE 97 mmol/L (98-107); CREATININE 1.08 mg/dL (0.55-1.02); PHOSPHOROUS 3.8 mg/dL (2.5-4.9); POTASSIUM 4.9 mmol/L (3.5-5.1); SODIUM 131 mmol/L (136-145)
--- NOTE | 2019-10-02 06:52 | NUR ---
ANSWERING SERVICE WAS NOTIFIED OF DR. AIDEE HOUSTON. RESPONSE OF NOTIFICATION WAS OK THANK YOU. CINTIA MACIAS
[2019-10-02 06:58] LABS: BUN 33 mg/dl (7-24)
--- NOTE | 2019-10-02 07:58 | NUR ---
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 Patient is ok to return when medically stable for discharge.
--- NOTE | 2019-10-02 08:10 | NUR ---
24HR CHART CHECK COMPLETE.
--- NOTE | 2019-10-02 14:10 | NUR ---
Occupational Therapy evaluation completed on 4 with full eval to follow. Precautions include abnormal labs,colostomy,fall risk,IV UE, o2 use, moderate complexity level 92037. Recommend OT per pOC and return to [facility] LTC upon d/c. Thank you. Palak Benoit OTR/l
[2019-10-02] MEDS ORDERED: ERGOCAL2500 UNIT PO ×2 (14:49→14:59)
[2019-10-02] MEDS ORDERED: HYDROCIL INSTA1 EACH PO (14:55)
[2019-10-02] MEDS ORDERED: DULOXETINE HCL30 MG PO (15:00)
--- NOTE | 2019-10-02 18:27 | NUR ---
Patient was screaming because her colostomy bag burst. Patient was educated on the proper way to "burp" her bag. Patient demonstrated knowledge and properly completed task. She was NOT happy.
--- NOTE | 2019-10-02 19:00 | NUR ---
ASSUMED CARE FOR THIS PT AT THIS TIME. COLOSTOMY BAG CHANGED D/T LEAKING. ABD DRSG CHANGED D/T SATURATION W/LIGHT HINSON PURULENT DRAINAGE. WILL MONITOR. CALL LIGHT IN REACH.
--- NOTE | 2019-10-02 23:30 | NUR ---
ENTERED PT'S ROOM AND PT WAS STANDING BESIDE BED URINATING ON FLOOR. PT STATES HER COLOSTOMY BAG WAS LEAKING. PT HAD OPENED THE BAG. PT CLEANED AND LINENS CHANGED. COLOSTOMY BAG SEALED. CALL LIGHT IN REACH.
--- NOTE | 2019-10-02 23:45 | NUR ---
PT PUT CALL LIGHT ON. PT STATED COLOSTOMY BAG WAS LEAKING. PT ASKED THIS NURSE FOR A WIPE BECAUSE SHE HAD BEEN PICKING AT HER COLOSTOMY BAG. PT TEACHING GIVEN ON NOT TOUCHING THE COLOSTOMY BAG AND CALLING FOR ASSISTANCE IF SHE FEELS IT IS LEAKING. PT ACKNOWLEDGES. CALL LIGHT IN REACH.
[2019-10-03] VITALS: BP 134/68
[2019-10-03 06:25] LABS: BASO # 0.1 10*3/uL (0.0-0.1); BASO % 0.6 % (0.0-1.0); EOS # 0.5 10*3/uL (0.0-0.4); EOS % 5.8 % (1.0-4.0); HEMATOCRIT 29.9 % (37.0-47.0); HEMOGLOBIN 9.3 g/dl (12.0-16.0); LYMPH # 2.2 10*3/uL (1.3-4.4); LYMPH % 26.7 % (27.0-41.0); MEAN CELL VOLUME 97.7 fl (81.0-99.0); MEAN CORPUSCULAR HGB 30.4 pg (27.0-31.0); MEAN CORPUSCULAR HGB CONC 31.1 g/dl (33.0-37.0); MEAN PLATELET VOLUME 8.7 fl (9.6-12.3); MONO # 0.5 10*3/uL (0.1-1.0); MONO % 5.6 % (3.0-9.0); NEUT % 60.3 % (47.0-73.0); PLATELET COUNT AUTOMATED 531 10*3/uL (130-400); RED BLOOD COUNT 3.06 10*6/uL (4.10-5.10); RED CELL DISTRI WIDTH 15.3 % (0-14.5); WHITE BLOOD COUNT 8.3 10*3/uL (4.8-10.8)
[2019-10-03 06:48] LABS: ALBUMIN 2.5 gm/dl (3.1-4.5); ALKALINE PHOSPHATASE 82 U/L (45-117); CHLORIDE 100 mmol/L (98-107); CREATININE 0.86 mg/dL (0.55-1.02); PHOSPHOROUS 3.4 mg/dL (2.5-4.9); POTASSIUM 4.7 mmol/L (3.5-5.1); SGOT/AST 16 IU/L (3-35); SGPT/ALT 12 U/L (12-78); SODIUM 135 mmol/L (136-145); TOTAL PROTEIN 6.8 gm/dL (6.4-8.2)
[2019-10-03 06:50] LABS: BUN 18 mg/dl (7-24)
[2019-10-03 08:00] VITALS: BP 134/62; BP 136/59
--- NOTE | 2019-10-03 12:03 | NUR ---
PT REFUSED D/C WOUND PHOTOS. PT STATES "THEY HAVE ENOUGH PICTURES THIS MONTH".
--- NOTE | 2019-10-03 12:48 | NUR ---
Discharge instructions reviewed with patient/family. Patient receptive and verbalizes understanding. Follow-up care arranged. Written instructions given to patient/family. BALDEV PAT
--- NOTE | 2019-10-03 12:53 | NUR ---
REPORT CALLED TO VANESA ORTA,[facility].
== END 2019-10-03 12:53 | DRG 682 ==
LOC: ED 21:41 → EDHOLD 23:34 → 4E 10-02 11:53
PROVIDERS: Emergency Medicine; Internal Medicine; ADMIT Family Medicine
DX: N17.0 Acute kidney failure with tubular necrosis (principal); E43 Unspecified severe protein-calorie malnutrition; E87.1 Hypo-osmolality and hyponatremia; I50.30 Unspecified diastolic (congestive) heart failure; K50.80 Crohn's disease of both small and large intestine without complications; E87.5 Hyperkalemia; E78.5 Hyperlipidemia, unspecified; E83.42 Hypomagnesemia; E11.65 Type 2 diabetes mellitus with hyperglycemia; E03.9 Hypothyroidism, unspecified; I95.9 Hypotension, unspecified; J44.9 Chronic obstructive pulmonary disease, unspecified; I25.10 Atherosclerotic heart disease of native coronary artery without angina pectoris; G40.909 Epilepsy, unspecified, not intractable, without status epilepticus; N18.3 Chronic kidney disease, stage 3 (moderate); E11.22 Type 2 diabetes mellitus with diabetic chronic kidney disease; Z68.35 Body mass index [BMI] 35.0-35.9, adult; Z79.4 Long term (current) use of insulin; Z88.2 Allergy status to sulfonamides; Z88.8 Allergy status to other drugs, medicaments and biological substances; Z79.899 Other long term (current) drug therapy; Z79.82 Long term (current) use of aspirin; Z93.3 Colostomy status; Z95.5 Presence of coronary angioplasty implant and graft; Z95.1 Presence of aortocoronary bypass graft; Z87.891 Personal history of nicotine dependence; Z82.49 Family history of ischemic heart disease and other diseases of the circulatory system; Z80.1 Family history of malignant neoplasm of trachea, bronchus and lung; Z90.49 Acquired absence of other specified parts of digestive tract

== ENCOUNTER 2019-10-06 11:22 | Emergency (ER) | payer MEDICARE, OTHER ==
[~2019-10-06 11:22] MED LIST changes: +CHOLESTYRAMI239.4 GM PO; +DULOXETINE HCL30 MG PO; +ERGOCAL2500 UNIT PO; +HYDROCIL INSTA1 EACH PO; +METAMUCIL PACK3.4 GM PO; +OYSTERCAL-D 501 EACH PO; +SODIUM CHLORIDE1 GM PO; +VITAMIN D50000 UNIT PO
[2019-10-06 13:50] VITALS: BP 116/50
== END 2019-10-06 15:05 ==
LOC: ED 11:22
DX: E83.42 Hypomagnesemia (principal); I25.10 Atherosclerotic heart disease of native coronary artery without angina pectoris; J44.9 Chronic obstructive pulmonary disease, unspecified; E78.5 Hyperlipidemia, unspecified; E03.9 Hypothyroidism, unspecified; E11.9 Type 2 diabetes mellitus without complications; E66.01 Morbid (severe) obesity due to excess calories; G40.909 Epilepsy, unspecified, not intractable, without status epilepticus; I50.9 Heart failure, unspecified; Z95.1 Presence of aortocoronary bypass graft; Z93.3 Colostomy status; Z88.2 Allergy status to sulfonamides; Z88.8 Allergy status to other drugs, medicaments and biological substances; Z79.899 Other long term (current) drug therapy; Z79.82 Long term (current) use of aspirin; Z79.4 Long term (current) use of insulin; Z87.891 Personal history of nicotine dependence

== ENCOUNTER 2019-10-11 20:12 | Emergency (ER) | payer MEDICARE, OTHER ==
[~2019-10-11] VITALS: Ht 149.8 cm; Wt 75.9 kg
[2019-10-11 21:05] LABS: BASO # 0.1 10*3/uL (0.0-0.1); BASO % 0.5 % (0.0-1.0); EOS # 0.3 10*3/uL (0.0-0.4); EOS % 3.4 % (1.0-4.0); HEMATOCRIT 26.7 % (37.0-47.0); HEMOGLOBIN 8.4 g/dl (12.0-16.0); LYMPH # 2.3 10*3/uL (1.3-4.4); LYMPH % 23.7 % (27.0-41.0); MEAN CELL VOLUME 97.8 fl (81.0-99.0); MEAN CORPUSCULAR HGB 30.8 pg (27.0-31.0); MEAN CORPUSCULAR HGB CONC 31.5 g/dl (33.0-37.0); MEAN PLATELET VOLUME 8.1 fl (9.6-12.3); MONO # 0.8 10*3/uL (0.1-1.0); MONO % 7.9 % (3.0-9.0); NEUT # 6.3 10*3/uL (2.3-7.9); NEUT % 63.6 % (47.0-73.0); PLATELET COUNT AUTOMATED 418 10*3/uL (130-400); RED BLOOD COUNT 2.73 10*6/uL (4.10-5.10); RED CELL DISTRI WIDTH 14.7 % (0-14.5); WHITE BLOOD COUNT 9.9 10*3/uL (4.8-10.8)
[2019-10-11 21:14] LABS: INTERNATIONAL NORM RATIO 1.2 (2.0-3.5)
[2019-10-11 21:29] LABS: ALBUMIN 2.6 gm/dl (3.1-4.5); CREATININE 1.66 mg/dL (0.55-1.02); POTASSIUM 5.7 mmol/L (3.5-5.1); TOTAL PROTEIN 6.4 gm/dL (6.4-8.2)
[2019-10-12 01:30] VITALS: BP 107/51
== END 2019-10-12 05:18 | disposition other institution (70) ==
LOC: ED 20:12
PROVIDERS: Physician Assistant
DX: E83.42 Hypomagnesemia (principal); R79.1 Abnormal coagulation profile; Z88.2 Allergy status to sulfonamides; Z88.8 Allergy status to other drugs, medicaments and biological substances; Z79.899 Other long term (current) drug therapy; Z79.4 Long term (current) use of insulin; Z79.82 Long term (current) use of aspirin; Z87.891 Personal history of nicotine dependence

== ENCOUNTER 2019-10-14 08:38 | Inpatient (IN) | payer MEDICARE, OTHER ==
[~2019-10-14] VITALS: Ht 149.8 cm; Wt 71.5 kg
[2019-10-14 08:40] VITALS: BP 98/48
[2019-10-14 09:28] LABS: BASO # 0.1 10*3/uL (0.0-0.1); BASO % 0.4 % (0.0-1.0); EOS # 0.4 10*3/uL (0.0-0.4); EOS % 2.5 % (1.0-4.0); HEMATOCRIT 28.6 % (37.0-47.0); LYMPH # 1.7 10*3/uL (1.3-4.4); LYMPH % 10.3 % (27.0-41.0); MEAN CELL VOLUME 98.3 fl (81.0-99.0); MEAN CORPUSCULAR HGB 30.9 pg (27.0-31.0); MEAN CORPUSCULAR HGB CONC 31.5 g/dl (33.0-37.0); MEAN PLATELET VOLUME 8.8 fl (9.6-12.3); MONO # 0.9 10*3/uL (0.1-1.0); MONO % 5.2 % (3.0-9.0); NEUT # 13.3 10*3/uL (2.3-7.9); NEUT % 80.6 % (47.0-73.0); PLATELET COUNT AUTOMATED 498 10*3/uL (130-400); RED BLOOD COUNT 2.91 10*6/uL (4.10-5.10); RED CELL DISTRI WIDTH 14.8 % (0-14.5); WHITE BLOOD COUNT 16.5 10*3/uL (4.8-10.8)
[2019-10-14 09:42] LABS: ALBUMIN 2.6 gm/dl (3.1-4.5); CREATININE 2.31 mg/dL (0.55-1.02); POTASSIUM 5.9 mmol/L (3.5-5.1); TOTAL PROTEIN 7.1 gm/dL (6.4-8.2)
[2019-10-14 10:11] LABS: ACT PARTIAL THROMBO TIME 34.7 SECONDS (20.0-32.1); INTERNATIONAL NORM RATIO 1.1 (2.0-3.5)
[2019-10-14 10:45] VITALS: BP 102/43; BP 104/50
[2019-10-14 11:00] VITALS: BP 104/50
[2019-10-14] MEDS ORDERED: LEVETIRACETAM500 MG PO (15:34)
[2019-10-14] MEDS ORDERED: VELTASSA8.4 GM PO (15:35)
[2019-10-14 15:37] LABS: BILIRUBIN NEGATIVE (NEGATIVE); BLOOD NEGATIVE (NEGATIVE); CLARITY SL CLOUDY (CLEAR); COLOR YELLOW (YELLOW); GLUCOSE NEGATIVE (NEGATIVE); KETONE NEGATIVE (NEGATIVE); LEUKO ESTERASE 2+ (NEGATIVE); NITRITE NEGATIVE (NEGATIVE); PH 5.5 (5.0-9.0); SPECIFIC GRAVITY 1.015 (1.005-1.030); UROBILINOGEN 0.2 E.U./dl (0.2-1.0)
[2019-10-14] MEDS ORDERED: VITAMIN D250 MCG PO (15:40)
[2019-10-14] MEDS ORDERED: METAMUCIL POWD174 GM PO (15:43)
[2019-10-14] MEDS ORDERED: DEPAKOTE125 MG PO (15:45)
[2019-10-14 16:00] VITALS: BP 124/47
[2019-10-14 16:08] LABS: BACTERIA 4+; MUCOUS 1+; WBC TNTC wbc/hpf (0-5)
[2019-10-14 16:16] LABS: CREATININE 1.87 mg/dL (0.55-1.02); POTASSIUM 5.7 mmol/L (3.5-5.1)
[2019-10-14] MEDS ORDERED: FENOFIBRATE MI200 MG PO (17:17)
[2019-10-14 20:00] VITALS: BP 103/42
[2019-10-15] VITALS: BP 93/46
[2019-10-15 07:06] LABS: BASO % 0.3 % (0.0-1.0); EOS # 0.4 10*3/uL (0.0-0.4); EOS % 2.8 % (1.0-4.0); HEMOGLOBIN 9.2 g/dl (12.0-16.0); LYMPH # 1.6 10*3/uL (1.3-4.4); LYMPH % 12.8 % (27.0-41.0); MEAN CELL VOLUME 95.4 fl (81.0-99.0); MEAN CORPUSCULAR HGB 30.3 pg (27.0-31.0); MEAN CORPUSCULAR HGB CONC 31.7 g/dl (33.0-37.0); MEAN PLATELET VOLUME 8.7 fl (9.6-12.3); MONO # 0.6 10*3/uL (0.1-1.0); MONO % 5.1 % (3.0-9.0); NEUT # 9.6 10*3/uL (2.3-7.9); NEUT % 77.4 % (47.0-73.0); PLATELET COUNT AUTOMATED 502 10*3/uL (130-400); RED BLOOD COUNT 3.04 10*6/uL (4.10-5.10); RED CELL DISTRI WIDTH 14.5 % (0-14.5); WHITE BLOOD COUNT 12.4 10*3/uL (4.8-10.8)
[2019-10-15 07:07] LABS: CHLORIDE 102 mmol/L (98-107); PHOSPHOROUS 3.3 mg/dL (2.5-4.9); POTASSIUM 4.9 mmol/L (3.5-5.1); SODIUM 132 mmol/L (136-145)
[2019-10-15 07:10] LABS: BUN 26 mg/dl (7-24)
[2019-10-15 07:49] VITALS: BP 106/58
[2019-10-15] MEDS ORDERED: QUESTRAN LIGHT4 GM PO (09:33)
[2019-10-15] MEDS ORDERED: SODIUM CHLORIDE1 GM PO (09:33)
[2019-10-15 10:26] VITALS: BP 118/60
[2019-10-15 12:00] VITALS: BP 110/58
[2019-10-15 16:00] VITALS: BP 115/41
[2019-10-15 20:00] VITALS: BP 125/44
[2019-10-16] VITALS: BP 110/42
[2019-10-16 08:00] VITALS: BP 116/48
[2019-10-16 08:43] LABS: CHLORIDE 105 mmol/L (98-107); CREATININE 0.79 mg/dL (0.55-1.02); POTASSIUM 5.2 mmol/L (3.5-5.1); SODIUM 135 mmol/L (136-145)
[2019-10-16 08:52] LABS: BUN 12 mg/dl (7-24)
[2019-10-16 14:00] VITALS: BP 116/35
[2019-10-16 16:00] VITALS: BP 129/47
[2019-10-16 20:00] VITALS: BP 142/46
[2019-10-17] VITALS: BP 108/89
[2019-10-17 07:08] LABS: BASO # 0.1 10*3/uL (0.0-0.1); BASO % 0.7 % (0.0-1.0); EOS # 0.3 10*3/uL (0.0-0.4); EOS % 4.1 % (1.0-4.0); HEMATOCRIT 28.6 % (37.0-47.0); HEMOGLOBIN 8.5 g/dl (12.0-16.0); LYMPH # 1.8 10*3/uL (1.3-4.4); LYMPH % 24.8 % (27.0-41.0); MEAN CORPUSCULAR HGB 29.4 pg (27.0-31.0); MEAN CORPUSCULAR HGB CONC 29.7 g/dl (33.0-37.0); MEAN PLATELET VOLUME 8.6 fl (9.6-12.3); MONO # 0.7 10*3/uL (0.1-1.0); MONO % 9.2 % (3.0-9.0); NEUT # 4.3 10*3/uL (2.3-7.9); NEUT % 59.7 % (47.0-73.0); PLATELET COUNT AUTOMATED 478 10*3/uL (130-400); RED BLOOD COUNT 2.89 10*6/uL (4.10-5.10); RED CELL DISTRI WIDTH 14.5 % (0-14.5); WHITE BLOOD COUNT 7.3 10*3/uL (4.8-10.8)
[2019-10-17 07:22] LABS: ALBUMIN 2.1 gm/dl (3.1-4.5); BUN 6 mg/dl (7-24); CHLORIDE 107 mmol/L (98-107); CREATININE 0.71 mg/dL (0.55-1.02); PHOSPHOROUS 3.3 mg/dL (2.5-4.9); POTASSIUM 4.5 mmol/L (3.5-5.1); SODIUM 137 mmol/L (136-145)
[2019-10-17 08:00] VITALS: BP 110/52
[2019-10-17 12:00] VITALS: BP 114/56
== END 2019-10-17 12:09 | DRG 682 ==
LOC: ED 08:38 → 4E 10:06 → EDHOLD 10:06 → 4E 10:22
PROVIDERS: Emergency Medicine; Family Medicine; Internal Medicine; Internal Medicine Nephrology; Student in an Organized Health Care Education/Training Program; ADMIT Family Medicine
DX: N17.0 Acute kidney failure with tubular necrosis (principal); E43 Unspecified severe protein-calorie malnutrition; K50.818 Crohn's disease of both small and large intestine with other complication; I50.32 Chronic diastolic (congestive) heart failure; E87.1 Hypo-osmolality and hyponatremia; J44.9 Chronic obstructive pulmonary disease, unspecified; E87.5 Hyperkalemia; E83.42 Hypomagnesemia; E66.09 Other obesity due to excess calories; I25.10 Atherosclerotic heart disease of native coronary artery without angina pectoris; D64.9 Anemia, unspecified; E03.9 Hypothyroidism, unspecified; E78.5 Hyperlipidemia, unspecified; G40.909 Epilepsy, unspecified, not intractable, without status epilepticus; I95.9 Hypotension, unspecified; E86.0 Dehydration; D47.3 Essential (hemorrhagic) thrombocythemia; K94.10 Enterostomy complication, unspecified; E11.65 Type 2 diabetes mellitus with hyperglycemia; E83.52 Hypercalcemia; Z53.20 Procedure and treatment not carried out because of patient's decision for unspecified reasons; Z90.49 Acquired absence of other specified parts of digestive tract; Z79.899 Other long term (current) drug therapy; Z87.891 Personal history of nicotine dependence; Z95.1 Presence of aortocoronary bypass graft; Z95.5 Presence of coronary angioplasty implant and graft; Z80.1 Family history of malignant neoplasm of trachea, bronchus and lung; Z82.49 Family history of ischemic heart disease and other diseases of the circulatory system; Z79.82 Long term (current) use of aspirin; Z68.31 Body mass index [BMI] 31.0-31.9, adult; Z79.4 Long term (current) use of insulin

== ENCOUNTER 2019-12-19 22:33 | Inpatient (IN) | payer MEDICARE, OTHER ==
[~2019-12-19] VITALS: Ht 149.8 cm; Wt 71.7 kg
[2019-12-19 22:33] VITALS: BP 122/50
[~2019-12-19 22:33] MED LIST changes: +DEPAKOTE125 MG PO; +LEVETIRACETAM500 MG PO; +METAMUCIL POWD174 GM PO; +QUESTRAN LIGHT4 GM PO; +VELTASSA8.4 GM PO; +VITAMIN D250 MCG PO
[2019-12-19 23:06] LABS: BASO # 0.1 10*3/uL (0.0-0.1); BASO % 0.5 % (0.0-1.0); EOS # 0.4 10*3/uL (0.0-0.4); EOS % 3.9 % (1.0-4.0); HEMATOCRIT 23.5 % (37.0-47.0); LYMPH # 2.5 10*3/uL (1.3-4.4); LYMPH % 26.3 % (27.0-41.0); MEAN CELL VOLUME 94.4 fl (81.0-99.0); MEAN CORPUSCULAR HGB 28.1 pg (27.0-31.0); MEAN CORPUSCULAR HGB CONC 29.8 g/dl (33.0-37.0); MEAN PLATELET VOLUME 8.4 fl (9.6-12.3); MONO # 0.8 10*3/uL (0.1-1.0); MONO % 8.4 % (3.0-9.0); NEUT # 5.5 10*3/uL (2.3-7.9); PLATELET COUNT AUTOMATED 516 10*3/uL (130-400); RED BLOOD COUNT 2.49 10*6/uL (4.10-5.10); RED CELL DISTRI WIDTH 14.6 % (0-14.5); WHITE BLOOD COUNT 9.3 10*3/uL (4.8-10.8)
[2019-12-19 23:17] LABS: ACT PARTIAL THROMBO TIME 30.5 SECONDS (20.0-32.1)
[2019-12-19 23:24] LABS: ALBUMIN 1.6 gm/dl (3.1-4.5); ALKALINE PHOSPHATASE 107 U/L (45-117); BUN 15 mg/dl (7-24); CHLORIDE 99 mmol/L (98-107); CREATININE 0.78 mg/dL (0.55-1.02); LIPASE 30 U/L (73-393); POTASSIUM 4.4 mmol/L (3.5-5.1); SGOT/AST 54 IU/L (3-35); SGPT/ALT 40 U/L (12-78); SODIUM 134 mmol/L (136-145); TOTAL PROTEIN 5.8 gm/dL (6.4-8.2)
[2019-12-19 23:25] LABS: TROPONIN I < 0.015 ng/ml (<0.045)
[2019-12-20] VITALS (8 sets, daily range): BP systolic 108–160; BP diastolic 40–63
[2019-12-20 01:02] LABS: BILIRUBIN NEGATIVE (NEGATIVE); CLARITY CLEAR (CLEAR); COLOR YELLOW (YELLOW); GLUCOSE NEGATIVE (NEGATIVE); KETONE NEGATIVE (NEGATIVE)
[2019-12-20 01:03] LABS: BLOOD NEGATIVE (NEGATIVE); LEUKO ESTERASE TRACE (NEGATIVE); NITRITE NEGATIVE (NEGATIVE); SPECIFIC GRAVITY 1.015 (1.005-1.030); UROBILINOGEN 0.2 E.U./dl (0.2-1.0)
[2019-12-20] MEDS ORDERED: OMNICEF300 MG PO (07:57)
[2019-12-20] MEDS ORDERED: LIDOCAINE5 GM T (07:58)
[2019-12-20] MEDS ORDERED: VELTASSA8.4 GM PO (08:17)
[2019-12-20] MEDS ORDERED: DEPAKOTE125 MG PO (08:19)
[2019-12-20] MEDS ORDERED: AKWA TEARS 15 M15 ML OPH (08:22)
[2019-12-20 13:12] LABS: BASO % 0.4 % (0.0-1.0); EOS # 0.1 10*3/uL (0.0-0.4); EOS % 1.1 % (1.0-4.0); HEMATOCRIT 26.5 % (37.0-47.0); HEMOGLOBIN 8.3 g/dl (12.0-16.0); LYMPH # 2.2 10*3/uL (1.3-4.4); LYMPH % 19.3 % (27.0-41.0); MEAN CORPUSCULAR HGB 28.5 pg (27.0-31.0); MEAN CORPUSCULAR HGB CONC 31.3 g/dl (33.0-37.0); MEAN PLATELET VOLUME 8.5 fl (9.6-12.3); MONO # 0.6 10*3/uL (0.1-1.0); MONO % 5.1 % (3.0-9.0); NEUT # 8.2 10*3/uL (2.3-7.9); NEUT % 72.3 % (47.0-73.0); PLATELET COUNT AUTOMATED 547 10*3/uL (130-400); RED BLOOD COUNT 2.91 10*6/uL (4.10-5.10); RED CELL DISTRI WIDTH 14.7 % (0-14.5); WHITE BLOOD COUNT 11.4 10*3/uL (4.8-10.8)
[2019-12-20 13:14] LABS: MEAN CELL VOLUME 91.1 fl (81.0-99.0)
[2019-12-20 22:09] LABS: BASO % 0.4 % (0.0-1.0); EOS # 0.2 10*3/uL (0.0-0.4); EOS % 2.2 % (1.0-4.0); HEMATOCRIT 28.8 % (37.0-47.0); HEMOGLOBIN 8.9 g/dl (12.0-16.0); LYMPH % 22.2 % (27.0-41.0); MEAN CELL VOLUME 90.6 fl (81.0-99.0); MEAN CORPUSCULAR HGB CONC 30.9 g/dl (33.0-37.0); MEAN PLATELET VOLUME 8.3 fl (9.6-12.3); MONO # 0.5 10*3/uL (0.1-1.0); MONO % 6.1 % (3.0-9.0); NEUT % 67.4 % (47.0-73.0); PLATELET COUNT AUTOMATED 541 10*3/uL (130-400); RED BLOOD COUNT 3.18 10*6/uL (4.10-5.10); RED CELL DISTRI WIDTH 14.8 % (0-14.5); WHITE BLOOD COUNT 8.9 10*3/uL (4.8-10.8)
[2019-12-20 23:34] LABS: BILIRUBIN NEGATIVE (NEGATIVE); BLOOD NEGATIVE (NEGATIVE); CLARITY CLEAR (CLEAR); COLOR YELLOW (YELLOW); GLUCOSE NEGATIVE (NEGATIVE); KETONE NEGATIVE (NEGATIVE); LEUKO ESTERASE NEGATIVE (NEGATIVE); NITRITE NEGATIVE (NEGATIVE); SPECIFIC GRAVITY 1.005 (1.005-1.030); UROBILINOGEN 0.2 E.U./dl (0.2-1.0)
[2019-12-20 23:46] LABS: BACTERIA TRACE
[2019-12-21] VITALS: BP 157/57
[2019-12-21 06:58] LABS: BUN 6 mg/dl (7-24); CHLORIDE 99 mmol/L (98-107); CREATININE 0.67 mg/dL (0.55-1.02); POTASSIUM 4.1 mmol/L (3.5-5.1); SODIUM 137 mmol/L (136-145)
[2019-12-21 06:59] LABS: PHOSPHOROUS 4.2 mg/dL (2.5-4.9)
[2019-12-21 07:30] LABS: BASO % 0.4 % (0.0-1.0); EOS # 0.2 10*3/uL (0.0-0.4); EOS % 2.4 % (1.0-4.0); HEMATOCRIT 31.6 % (37.0-47.0); HEMOGLOBIN 9.7 g/dl (12.0-16.0); LYMPH # 1.8 10*3/uL (1.3-4.4); LYMPH % 23.3 % (27.0-41.0); MEAN CELL VOLUME 91.6 fl (81.0-99.0); MEAN CORPUSCULAR HGB 28.1 pg (27.0-31.0); MEAN CORPUSCULAR HGB CONC 30.7 g/dl (33.0-37.0); MONO # 0.6 10*3/uL (0.1-1.0); MONO % 7.2 % (3.0-9.0); NEUT # 5.1 10*3/uL (2.3-7.9); NEUT % 64.9 % (47.0-73.0); PLATELET COUNT AUTOMATED 589 10*3/uL (130-400); RED BLOOD COUNT 3.45 10*6/uL (4.10-5.10); WHITE BLOOD COUNT 7.9 10*3/uL (4.8-10.8)
[2019-12-21 08:00] VITALS: BP 142/52
[2019-12-21 12:00] VITALS: BP 153/49
== END 2019-12-21 14:49 | DRG 377 ==
LOC: ED 22:33 → EDHOLD 12-20 03:32 → 5E 12-20 03:32
PROVIDERS: Family Medicine; Nurse Practitioner Family; Student in an Organized Health Care Education/Training Program; ADMIT Internal Medicine
PROC: 30233N1 Transfusion of Nonautologous Red Blood Cells into Peripheral Vein, Percutaneous Approach (ICD-10-PCS; principal; 2019-12-20)
DX: K92.2 Gastrointestinal hemorrhage, unspecified (principal); G93.41 Metabolic encephalopathy; E43 Unspecified severe protein-calorie malnutrition; E87.1 Hypo-osmolality and hyponatremia; I50.32 Chronic diastolic (congestive) heart failure; R65.10 Systemic inflammatory response syndrome (SIRS) of non-infectious origin without acute organ dysfunction; D64.9 Anemia, unspecified; E78.5 Hyperlipidemia, unspecified; G40.909 Epilepsy, unspecified, not intractable, without status epilepticus; E66.01 Morbid (severe) obesity due to excess calories; J41.0 Simple chronic bronchitis; I25.10 Atherosclerotic heart disease of native coronary artery without angina pectoris; F03.90 Unspecified dementia, unspecified severity, without behavioral disturbance, psychotic disturbance, mood disturbance, and anxiety; R53.1 Weakness; D47.3 Essential (hemorrhagic) thrombocythemia; E83.42 Hypomagnesemia; R74.0 Nonspecific elevation of levels of transaminase and lactic acid dehydrogenase [LDH]; E03.9 Hypothyroidism, unspecified; E11.65 Type 2 diabetes mellitus with hyperglycemia; Z79.4 Long term (current) use of insulin; Z68.33 Body mass index [BMI] 33.0-33.9, adult; I25.2 Old myocardial infarction; Z99.81 Dependence on supplemental oxygen; Z90.49 Acquired absence of other specified parts of digestive tract; Z88.2 Allergy status to sulfonamides; Z88.8 Allergy status to other drugs, medicaments and biological substances; Z91.041 Radiographic dye allergy status; Z95.1 Presence of aortocoronary bypass graft; Z87.891 Personal history of nicotine dependence; Z80.1 Family history of malignant neoplasm of trachea, bronchus and lung; Z82.49 Family history of ischemic heart disease and other diseases of the circulatory system; Z93.3 Colostomy status; Z79.82 Long term (current) use of aspirin; Z79.899 Other long term (current) drug therapy

== ENCOUNTER 2020-01-21 11:49 | Emergency (ER) | payer MEDICARE, OTHER ==
[~2020-01-21] VITALS: Ht 149.9 cm
[2020-01-21] VITALS (10 sets, daily range): BP systolic 91–128; BP diastolic 39–72
[~2020-01-21 11:49] MED LIST changes: +AKWA TEARS 15 M15 ML OPH; +LIDOCAINE5 GM T; +OMNICEF300 MG PO
[2020-01-21 12:32] LABS: MEAN CELL VOLUME 91.3 fl (81.0-99.0); MEAN CORPUSCULAR HGB 26.1 pg (27.0-31.0); MEAN CORPUSCULAR HGB CONC 28.6 g/dl (33.0-37.0); MEAN PLATELET VOLUME 8.6 fl (9.6-12.3); PLATELET COUNT AUTOMATED 414 10*3/uL (130-400); RED CELL DISTRI WIDTH 14.9 % (0-14.5); WHITE BLOOD COUNT 7.8 10*3/uL (4.8-10.8)
[2020-01-21 12:47] LABS: ALBUMIN 1.9 gm/dl (3.1-4.5); ALKALINE PHOSPHATASE 99 U/L (45-117); BUN 14 mg/dl (7-24); CHLORIDE 99 mmol/L (98-107); CREATININE 0.72 mg/dL (0.55-1.02); INTERNATIONAL NORM RATIO 1.1 (2.0-3.5); IRON 26 ug/dL (50-170); LIPASE 32 U/L (73-393); POTASSIUM 4.5 mmol/L (3.5-5.1); SGOT/AST 50 IU/L (3-35); SGPT/ALT 34 U/L (12-78); SODIUM 137 mmol/L (136-145); TOTAL IRON BINDING CAPACITY 267 ug/dl (250-450); TOTAL PROTEIN 5.9 gm/dL (6.4-8.2); TROPONIN I < 0.015 ng/ml (<0.045)
[2020-01-21 12:58] LABS: PLATELET SUFFICIENCY HIGH (NORMAL); POLYCHROMASIA SLIGHT; TOTAL CELLS COUNTED 100 #CELLS
[2020-01-21 12:59] LABS: STOMATOCYTE FEW
[2020-01-21 13:33] LABS: FERRITIN 15.1 ng/mL (10.0-291.0)
== END 2020-01-21 18:59 | disposition short-term general hospital (02) ==
LOC: ED 11:49
PROVIDERS: Emergency Medicine
DX: K92.2 Gastrointestinal hemorrhage, unspecified (principal); D62 Acute posthemorrhagic anemia; D68.9 Coagulation defect, unspecified; E11.9 Type 2 diabetes mellitus without complications; I25.2 Old myocardial infarction; J44.9 Chronic obstructive pulmonary disease, unspecified; E66.01 Morbid (severe) obesity due to excess calories; I11.0 Hypertensive heart disease with heart failure; I50.9 Heart failure, unspecified; E03.9 Hypothyroidism, unspecified; I48.91 Unspecified atrial fibrillation; M19.90 Unspecified osteoarthritis, unspecified site; Z93.3 Colostomy status; Z88.8 Allergy status to other drugs, medicaments and biological substances; Z88.2 Allergy status to sulfonamides; Z79.899 Other long term (current) drug therapy; Z79.4 Long term (current) use of insulin; Z79.2 Long term (current) use of antibiotics; Z79.82 Long term (current) use of aspirin; Z98.61 Coronary angioplasty status; Z87.891 Personal history of nicotine dependence

== ENCOUNTER → 2020-04-14 | Outpatient (CLI) | payer MEDICARE, OTHER ==
[~2020-04-14] MED LIST changes: +24 HOUR ALLER15.8 ML NAS; +ASPERCREME76.5 GM T; +COMBIVENT RESPIM4 GM INH; +CYMBALTA60 MG PO; +NORCO 5-325 TA1 EACH PO; -OLANZAPINE10 MG PO; +ZYPREXA15 M1 PO
--- NOTE | 2020-04-14 15:48 | NUR ---
SPEECH PATHOLOGY Outpatient MBS completed as per orders to assess candidacy to resume thin liquid. Patient is currently ordered honey thick liquids. She was alert and cooperative for assessment. 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 Patient was assessed with nectar and thin liquid by cup and thin liquid by straw. Swallow initiation was mildly delayed but once triggered she swallowed with no penetration, aspiration or residue. Recommend patient resume thin liquid. Recommend small sips. Patient can have liquids by cup or straw. Follow up therapy at the shelter is recommended to ensure safety of upgraded diet. Results and luly. were shared with patient and a written copy was provided for education of [facility] staff. Dictated report to follow. Thank you for this referral. OLVIN LESTER MSCCC-PROGRAM ENGINEER
== END | disposition home or self-care (01) ==
LOC: RAD/SH 04-03 09:00
DX: R13.10 Dysphagia, unspecified (principal)

== ENCOUNTER → 2020-05-05 | Outpatient (CLI) | payer MEDICARE, OTHER | END | disposition home or self-care (01) | LOC: CT 09:29 | DX: K43.4 Parastomal hernia with gangrene (principal) ==

== ENCOUNTER 2021-03-15 06:08 | Emergency (ER) | payer MEDICARE, OTHER ==
[~2021-03-15] VITALS: Ht 165.1 cm; Wt 88.9 kg
[2021-03-15 06:34] LABS: HEMATOCRIT 32.6 % (37.0-47.0); MEAN CORPUSCULAR HGB 23.7 pg (27.0-31.0); MEAN CORPUSCULAR HGB CONC 28.5 g/dl (33.0-37.0); MEAN PLATELET VOLUME 8.4 fl (9.6-12.3); PLATELET COUNT AUTOMATED 236 10*3/uL (130-400); RED BLOOD COUNT 3.93 10*6/uL (4.10-5.10); RED CELL DISTRI WIDTH 16.2 % (0-14.5); WHITE BLOOD COUNT 9.5 10*3/uL (4.8-10.8)
[2021-03-15 06:53] LABS: ALBUMIN 2.7 gm/dl (3.1-4.5); ALKALINE PHOSPHATASE 97 U/L (45-117); BUN 19 mg/dl (7-24); CHLORIDE 98 mmol/L (98-107); CREATININE 1.13 mg/dL (0.55-1.02); MICROCYTOSIS SLIGHT; PLATELET SUFFICIENCY NORMAL (NORMAL); POTASSIUM 3.8 mmol/L (3.5-5.1); SGOT/AST 19 IU/L (3-35); SGPT/ALT 22 U/L (12-78); SODIUM 135 mmol/L (136-145); TOTAL CELLS COUNTED 100 #CELLS
[2021-03-15 06:54] LABS: STOMATOCYTE FEW
[2021-03-15 06:55] LABS: TROPONIN I < 0.015 ng/ml (<0.045)
[2021-03-15 08:10] LABS: BILIRUBIN Negative (Negative); BLOOD 2+ (Negative); CLARITY Cloudy (Clear); COLOR Yellow (Yellow); GLUCOSE Negative (Negative); KETONE Negative (Negative); LEUKO ESTERASE 2+ (Negative); NITRITE Negative (Negative); PH 5.5 (4.5-8.0); SPECIFIC GRAVITY 1.015 (1.001-1.030)
[2021-03-15 08:35] LABS: BACTERIA 1+; MUCOUS 2+; WBC 16-20 wbc/hpf (0-5)
[2021-03-15 08:50] VITALS: BP 98/50
[2021-03-15] MEDS ORDERED: CEFUROXIME AXE250 MG PO (09:23)
== END 2021-03-15 09:30 ==
LOC: ED 06:08
PROVIDERS: Internal Medicine
DX: R50.9 Fever, unspecified (principal); N39.0 Urinary tract infection, site not specified; Z88.2 Allergy status to sulfonamides; Z88.8 Allergy status to other drugs, medicaments and biological substances; Z79.899 Other long term (current) drug therapy; Z79.4 Long term (current) use of insulin; Z98.890 Other specified postprocedural states; Z95.1 Presence of aortocoronary bypass graft; Z95.818 Presence of other cardiac implants and grafts

== ENCOUNTER 2021-03-16 16:03 | Emergency (ER) | payer MEDICARE, OTHER ==
[~2021-03-16] VITALS: Wt 86.2 kg
[~2021-03-16 16:03] MED LIST changes: +CEFUROXIME AXE250 MG PO
[2021-03-16 16:10] VITALS: BP 00/00
== END 2021-03-16 18:32 ==
LOC: ED 16:03
DX: I46.9 Cardiac arrest, cause unspecified (principal); Z88.0 Allergy status to penicillin; Z88.8 Allergy status to other drugs, medicaments and biological substances; Z79.899 Other long term (current) drug therapy; Z95.1 Presence of aortocoronary bypass graft; Z98.890 Other specified postprocedural states; Z87.891 Personal history of nicotine dependence